=== PATIENT | male | born 2000 | race Caucasian/White ===

== ENCOUNTER 2019-02-13 09:53 | Outpatient (CLI) | payer OTHER ==
--- NOTE | 2019-02-13 10:50 | RAD ---
Exam: Chest 2 views: HISTORY: Idiopathic acute pericarditis, cardiac murmur COMPARISON: None There is large anterior mediastinal mass at approximately the level of the hilar regions. On the righ t side this mass measures approximately 12 cm in craniocaudal length. There is nodular fullness of the left perihilar region as well. Heart size is within normal limits. Small right pleural effusion. IMPRESSION: Very large anterior mediastinal mass. Follow-up postcontrast chest CT scan is recommended for further assessment. Small right pleural effusion. Findings discussed with Dr. Larry's nurse and Dr. Larry in this regard CODE CR
== END 2019-02-13 09:54 | disposition home or self-care (01) ==
LOC: BICRAD 09:53
PROVIDERS: ATTEND Internal Medicine Cardiovascular Disease
DX: I30.0 Acute nonspecific idiopathic pericarditis (principal); R01.1 Cardiac murmur, unspecified; J98.59 Other diseases of mediastinum, not elsewhere classified
CPT/HCPCS: 71046

== ENCOUNTER 2019-02-14 11:49 | Outpatient (CLI) | payer OTHER ==
--- NOTE | 2019-02-14 12:35 | CT ---
CHEST CT WITH CONTRAST: HISTORY: Abnormal chest radiograph showing mass. FINDINGS: There is an enlarged, centrally necrotic mass occupying the anterior mediastinum, measuring 13.4 x 8. 7 cm. There is an adjacent smaller hypodense lesion with similar attenuation measuring 1.9 x 1.4 cm. There is mass effect and splaying of the tracheal bifurcation as well as the right mainstem bronc hus. There appears to be obstructive atelectasis involving the right upper lobe and middle lobe. Visualized aorta has a normal caliber. No periaortic fat stranding. No obvious central pulmonary ricardo ry embolism. Normal heart size. Moderate amount of pericardial fluid of the inferior pericardial region. Visualized upper abdomen is unremarkable. Small right-sided pleural effusion. IMPRESSION: 1. Anterior mediastinal mass. Differential considerations include thymoma, teratoma and lymphoma. 2. Moderate pericardial fluid along the inferior pericardial region. Results of study discussed with Dr. Laron Lagunas's nurse 02/14/2019 at 12:34 PM Code CR Transcribed Date/Time: 02/14/2019 1:17 PM
[2019-02-14] MEDS ORDERED: Iopamidol 370 76% 100 ML VIAL ONE (16:25)
== END 2019-02-14 11:50 | disposition home or self-care (01) ==
LOC: CT 11:49
PROVIDERS: ATTEND Internal Medicine Cardiovascular Disease
DX: I30.0 Acute nonspecific idiopathic pericarditis (principal); J98.59 Other diseases of mediastinum, not elsewhere classified
CPT/HCPCS: 71260; Q9967

== ENCOUNTER 2019-02-17 08:33 | Day surgery (SDC) | payer OTHER ==
[2019-02-14 15:10] VITALS: BMI 20.9
[2019-02-17 09:18] LABS: #Eosinphils 0.3 thou/uL (0.0-0.7); #Lymphocytes 1.2 thou/uL (1.20-3.40); #Monocytes 0.8 thou/uL (0.11-0.59); #Neutrophils 3.7 thou/uL (1.40-6.50); %Basophils 0.7 % (0.0-1.0); %Eosinophils 5.3 % (0.0-10.0); %Lymphocytes 20.1 % (28.0-48.0); %Monocytes 12.5 % (0.0-4.0); %Neutrophils 61.3 % (31.0-61.0); Hemoglobin 16.5 g/dL (14.0-18.0); Mean Corpuscular HGB CONC 34.7 g/dL (32.0-36.0); Mean Corpuscular Hemoglobin 30.1 pg (25.0-35.0); Mean Corpuscular Volume 86.8 fL (78.0-98.0); Mean Platelet Volume 8.3 fL (7.4-10.4); Platelet Count 150 thou/uL (130-400); RBC Distribution Width 11.6 % (11.5-14.5); Red Blood Cell (RBC) Count 5.48 mill/uL (4.00-5.20)
[2019-02-17 09:21] LABS: PTT 29.4 SEC (22.9-36.1); Prothrombin Time 13.4 SEC (12.0-14.7)
[2019-02-17 11:27] VITALS: BP 121/71; TEMP 99
--- NOTE | 2019-02-17 13:26 | CT ---
EXAM: CT guided biopsy of anterior mediastinal mass PROVIDED CLINICAL HISTORY: Large anterior mediastinal mass. COMPARISON: CT thorax on 02/14/2019. TECHNIQUE: The procedure including the risks and complications were explained to the patient, and informed conse nt was obtained. The patient was placed on the CT scan table in the supine position. Limited noncontrasted CT scan was obtained through the level of the large anterior mediastinal mass with grid localizer in place. An area was marked and then meticulously prepped and draped in usual sterile fashion. The skin and mir bcutaneous tissues were infiltrated with buffered 1% lidocaine for local anesthesia. A small skin incision was made. A 17-gauge guide needle was advanced followed by [address] images. This was repeated until the needle was placed into the peripheral aspect of the anterior mediastinal mass. A total of two 18-gauge core needle biopsy specimens were obtained utilizing coaxia l technique. Pathologist was available for evaluation of the specimens, and the pathologist reported diagnostic tissue biopsy. The needle was removed, and hemostasis was achieved with direct pressure. Dry sterile dressing was pl aced. The patient tolerated the procedure well and without immediate complication. The patient was transpor valentín to radiology nurses holding area for further monitoring prior to discharge. FINDINGS: Family Helper images again demonstrates a very large anterior mediastinal mass which extends into the right c hest with central area of necrosis again present. There is a small right pleural effusion again identified. A pericardial effusion is also seen which is larger in size compared to the study on 02/14. A CT-guided percutaneous biopsy was successfully performed with diagnostic tissue obtained by patholo gy report. Final pathology is pending. IMPRESSION: 1. Large anterior mediastinal mass. 2. Small right pleural effusion. 3. Small pericardial effusion which has increased in size from prior study. 4. Technically successful CT-guided percutaneous biopsy of the large anterior mediastinal mass. Final pathology report is pending.
== END 2019-02-17 13:00 | disposition home or self-care (01) ==
LOC: CT 08:33
PROVIDERS: ATTEND Internal Medicine Hematology & Oncology
PROC: 0WBC3ZX Excision of Mediastinum, Percutaneous Approach, Diagnostic (ICD-10-PCS; principal; 2019-02-17)
DX: C85.29 Mediastinal (thymic) large B-cell lymphoma, extranodal and solid organ sites (principal); J90 Pleural effusion, not elsewhere classified; I31.3 Pericardial effusion (noninflammatory); Z79.899 Other long term (current) drug therapy
CPT/HCPCS: 32405; 36415; 77012; 85025; 85610; 85730; 88184; 88305; 88333; 88341; 88342

== ENCOUNTER 2019-02-25 13:49 | Outpatient (CLI) | payer OTHER ==
--- NOTE | 2019-02-25 13:59 | PET ---
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 Initial staging. C 83.32 COMPARISON: none TECHNIQUE: IV injection of F-18 fluorodeoxyglucose (FDG) dose: 11.3 mCi. PET scan and attenuation correction CT performed from skull base to proximal thighs. FINDINGS: SUV (standard uptake values) numbers given are maximum SUVs. QCLR used. The huge anterior mediastinal mass centered to the right of midline has increased uptake, SUV 20.9. Small right pleural effusion. At the right posteromedial pleural space, just lateral and to the right of the T12 prevertebral space , there is a small focus of very increased uptake with SUV of 14.9. There is a small pericardial effusion. No abnormal hypermetabolic activity in the neck, abdomen, or pelvis. IMPRESSION: 1) very hypermetabolic activity of the huge anterior mediastinal lymphoma tumor mass. 2) very small neoplastic focal lesion in right pleural space associated with small right pleural effu nayana. 3) small pericardial effusion.
== END 2019-02-25 13:50 | disposition home or self-care (01) ==
LOC: PET 13:49
PROVIDERS: ATTEND Internal Medicine Hematology & Oncology
DX: C83.32 Diffuse large B-cell lymphoma, intrathoracic lymph nodes (principal); J90 Pleural effusion, not elsewhere classified
CPT/HCPCS: 78815; A9552

== ENCOUNTER 2019-02-28 06:47 | Outpatient (CLI) | payer OTHER ==
[2019-02-28 10:12] LABS: #Eosinphils 0.3 thou/uL (0.0-0.7); #Monocytes 0.7 thou/uL (0.11-0.59); #Neutrophils 3.3 thou/uL (1.40-6.50); %Basophils 0.6 % (0.0-1.0); %Eosinophils 4.9 % (0.0-10.0); %Lymphocytes 19.5 % (21.0-51.0); %Neutrophils 61.9 % (42.0-75.0); Mean Corpuscular HGB CONC 33.6 g/dL (32.0-36.0); Mean Corpuscular Hemoglobin 29.5 pg (27.0-31.0); Mean Corpuscular Volume 87.7 fL (78.0-98.0); Mean Platelet Volume 8.1 fL (7.4-10.4); Platelet Count 149 thou/uL (130-400); RBC Distribution Width 11.6 % (11.5-14.5); Red Blood Cell (RBC) Count 5.43 mill/uL (4.70-6.10); White Blood Cell (WBC) Count 5.3 thou/uL (4.8-10.8)
[2019-02-28 10:33] LABS: Anion Gap 12 mmol/L (10-20); BUN (Urea Nitrogen) 16 mg/dL (8.9-20.6); Calc. Creatinine Clearance 0 mL/min (70-130); Calcium 9.8 mg/dL (7.8-10.44); Carbon Dioxide 27 mmol/L (22-29); Chloride 103 mmol/L (98-107); Estimated GFR-MDRD 86; Glucose 78 mg/dL (70-105); Potassium 4.4 mmol/L (3.5-5.1); Sodium 138 mmol/L (136-145)
== END 2019-02-28 06:48 | disposition home or self-care (01) ==
LOC: LABBT 06:47
PROVIDERS: ATTEND Surgery
DX: Z01.812 Encounter for preprocedural laboratory examination (principal); C85.90 Non-Hodgkin lymphoma, unspecified, unspecified site
CPT/HCPCS: 80048; 85025

== ENCOUNTER 2019-03-03 06:08 | Day surgery (SDC) | payer OTHER ==
[2019-02-28 09:47] VITALS: BMI 20.9
[2019-03-03] MEDS ORDERED: Lidocaine 2% PF 5 ML VIAL ONE (06:54)
[2019-03-03] MEDS ORDERED: Bupivacaine 0.25% HCL 30 ML VIAL ONE (06:54)
[2019-03-03] MEDS ORDERED: Midazolam HCl 2 mg/2 ml Vial ONE (07:03)
[2019-03-03] MEDS ORDERED: Fentanyl 100 MCG/2 ML VIAL ONE (07:03)
[2019-03-03] MEDS ORDERED: Ketamine 50 MG/ML (10ML VIAL) ONE (07:23)
[2019-03-03] MEDS ORDERED: Albuterol Sulfate HFA (OR ONLY) ONE (08:05)
--- NOTE | 2019-03-03 08:54 | OP ---
DATE OF PROCEDURE: 03/03/2019 PREOPERATIVE DIAGNOSIS: Lymphoma. POSTOPERATIVE DIAGNOSIS: Lymphoma with distal trachea obstruction during anesthesia. PROCEDURE PERFORMED: Attempted MediPort. SPECIMENS: None. ESTIMATED BLOOD LOSS: None. COMPLICATIONS: The procedure had to be aborted secondary to airway compromise when he lays supine. FINDINGS: The patient developed distal trachea and bronchus obstruction from this mass when he laid spine and he was sedated, so the procedure was aborted. DESCRIPTION OF PROCEDURE: The patient was taken to the operating room and laid supine on the operating room table. After sedation was obtained, the bilateral neck and chest was prepped and draped in a sterile fashion. Local anesthetic infiltrated over the right internal jugular vein and in the right upper chest. The right internal jugular vein was attempted to be cannulated using a 22-gauge finder needle. The patient developed severe coughing episode followed by airway obstruction. He was intubated. Even after intubation, he had low saturations and was difficult to ventilate. He was placed on his right side, and his ventilation became easier. Decision was made to stop the procedure. He will discuss with Dr. Rizo, his oncologist. He will have PICC line placed for his treatment. We will attempt to have that arranged today. Chest x-ray will be obtained postop. Job ID: [id number]
--- NOTE | 2019-03-03 09:01 | RAD ---
XR Chest 1 View HISTORY: Postop COMPARISON: 02/13/2019 chest x-ray and CT examination of 02/14/2018. FINDINGS: The heart size is within normal limits. There is now increased opacification of the right c hest, this appears to be relates and development of right-sided pleural effusion the right hilar and mediastinal mass is more obscured on this study than on the previous exam. I'm not certain what c omponent of this opacification is related to an elevated right hemidiaphragm. The left lung is clear. IMPRESSION: Increased opacification the right hemithorax, probably related to pleural effusion but so me component of this is probably related to the mass and possibly also related to elevation to the hemidiaphragm.
[2019-03-03] MEDS ORDERED: PROPOFOL 200 MG/20 ML VIAL ONE (10:08)
[2019-03-03] MEDS ORDERED: Succinylcholine Chloride 20 MG/ML 10 ml SYRINGE FS ONE (10:08)
--- NOTE | 2019-03-03 16:07 | SPC ---
Sonographic guided left upper extremity PICC placement HISTORY: Lymphoma. FINDINGS: After explaining the procedure and answering all questions, the left upper extremity was pr epped and draped in usual sterile fashion. Sterile technique, buffered local anesthesia, sonographic guidance, and a 22-gauge needle were used to carefully access the left basilic vein. Sumit dard technique was used to place the tip of a 5 Cam[place]onian single lumen PICC so that the tip lies at the level of the superior vena cava. Catheter was flushed and secured externally. Patient tolerated t he procedure well and was returned in unchanged condition. Fluoroscopy time 0 seconds. IMPRESSION: Left upper extremity PICC is ready for use.
== END 2019-03-03 12:25 | disposition home or self-care (01) ==
LOC: SDC 06:08
PROVIDERS: ATTEND Surgery
PROC: 02HV33Z Insertion of Infusion Device into Superior Vena Cava, Percutaneous Approach (ICD-10-PCS; principal; 2019-03-03)
DX: C85.90 Non-Hodgkin lymphoma, unspecified, unspecified site (principal); J98.8 Other specified respiratory disorders; Z79.899 Other long term (current) drug therapy; Z53.8 Procedure and treatment not carried out for other reasons
CPT/HCPCS: 36569; 71045; C1751; C1788; J0690; J1642; J2001; J2250; J2704; J3010; S0020

== ENCOUNTER 2019-03-10 07:38 | Inpatient (IN) | payer OTHER ==
[2019-03-10] MEDS ORDERED: Acetaminophen 325 MG TAB PO PRN ×2 (14:48→16:50)
[2019-03-10] MEDS ORDERED: SODIUM CHLORIDE 0.9% IVPB SCH (15:00)
[2019-03-10] MEDS ORDERED: Ondansetron 2MG/ML MDV 10 MG, Dexamethasone Sod Phosphate 20 MG in Sodium Chloride 0.9%... IVPB SCH (15:00)
[2019-03-10] MEDS ORDERED: RITUXIMAB IVPB SCH (15:00)
[2019-03-10] MEDS ORDERED: Famotidine/PF 20 mg/2ml Vial SLOW IVP SCH (15:00)
[2019-03-10] MEDS ORDERED: PEGFILGRASTIM-JMDB 6 MG/0.6 ML SYRINGE SQ SCH (15:15)
[2019-03-10] MEDS ORDERED: Sulfameth/Trimethoprim DS 800-160mg TAB PO SCH (15:15)
--- NOTE | 2019-03-10 15:30 | RAD ---
PORTABLE CHEST 1 VIEW: Date: 03/10/19 Time: 1510 hours HISTORY: Right pleural effusion follow-up. Diffuse large B cell lymphoma. FINDINGS/IMPRESSION: Comparison made with exam of 03/03/19. The heart size is normal. The left lung is clear. A left-sided PICC line has been placed in the inter im with tip in the projection of the SVC. No pneumothoraces are seen. The right hilar/perihilar mass is again noted. A small right pleural effusion is present. POS: [facility]
[2019-03-10 15:32] LABS: Mean Corpuscular HGB CONC 35.4 g/dL (32.0-36.0); Mean Corpuscular Hemoglobin 30.4 pg (27.0-31.0); Mean Corpuscular Volume 85.9 fL (78.0-98.0); Mean Platelet Volume 8.3 fL (7.4-10.4); Platelet Count 151 thou/uL (130-400); RBC Distribution Width 11.8 % (11.5-14.5); Red Blood Cell (RBC) Count 5.25 mill/uL (4.70-6.10); White Blood Cell (WBC) Count 7.3 thou/uL (4.8-10.8)
[2019-03-10 15:38] LABS: INR-International Normal Ratio 1.1; PTT 30.3 SEC (22.9-36.1); Prothrombin Time 14.5 SEC (12.0-14.7)
[2019-03-10 15:54] LABS: ALT (SGPT) 21 U/L (8-55); AST (SGOT) 33 U/L (5-34); Albumin 4.4 g/dL (3.5-5.0); Alkaline Phosphatase 74 U/L (40-110); Anion Gap 14 mmol/L (10-20); BUN (Urea Nitrogen) 21 mg/dL (8.9-20.6); Band 17 % (5-11); Calc. Creatinine Clearance 0 mL/min (70-130); Calcium 10.4 mg/dL (7.8-10.44); Carbon Dioxide 28 mmol/L (22-29); Chloride 101 mmol/L (98-107); Eosinophils 5 % (0-10); Estimated GFR-MDRD 68; Globulin 2.5 g/dL (2.4-3.5); Glucose 79 mg/dL (70-105); Lymphocytes 7 % (21-51); MDiff Complete? YES; Monocytes 11 % (0-10); Neutrophil 54 % (42-75); Platelet Morphology Comment Appears Adequate; Potassium 4.2 mmol/L (3.5-5.1); Protein, Total 6.9 g/dL (6.0-8.3); RBC Morphology Normal; Reactive Lymphocytes 5 % (0-10); Sodium 139 mmol/L (136-145)
[2019-03-10] MEDS ORDERED: diphenhydrAMINE 50 MG in Sodium Chloride 0.9% 50 ML IVPB SCH (16:30)
[2019-03-10] MEDS ORDERED: Guaifenesin DM 100-10/5 ML UDCUP PO PRN (16:50)
[2019-03-10] MEDS ORDERED: Bisacodyl 10 MG SUPP PR PRN (16:50)
[2019-03-10] MEDS ORDERED: Senokot S 8.6-50 MG TAB PO PRN (16:50)
[2019-03-10] MEDS ORDERED: HYDROcodone/Acetaminophen 5/325 mg Tablet PO PRN (16:50)
[2019-03-10] MEDS ORDERED: Albuterol Sulfate 1.25 MG/3 ML NEB NEB PRN (16:54)
[2019-03-10] MEDS: Sodium Chloride 0.9% 1,000 ML IV SCH (17:58)
[2019-03-10] MEDS ORDERED: Morphine 4 MG/ML VIAL SLOW IVP SCH (19:45)
[2019-03-10] MEDS: Ondansetron PF 4 MG/2 ML Vial IVP PRN (20:00)
--- NOTE | 2019-03-10 20:28 | HP ---
REASON FOR ADMISSION: B-cell lymphoma for chemotherapy. HISTORY OF PRESENTING ILLNESS: The patient gives history of being diagnosed with B-cell lymphoma a month back. He was sent over from Dr. Haresh Rizo's office to initiate chemotherapy. He has complaints of shortness of breath which is progressively getting worse for the last month now. No chest pain or palpitation. No history of fever. PAST MEDICAL AND SURGICAL HISTORY: History of B-cell lymphoma which was diagnosed a month back. No prior surgeries. CURRENT MEDICATION: Allopurinol 300 mg twice daily. ALLERGIES: NO KNOWN DRUG ALLERGIES. PERSONAL HISTORY: Does not abuse alcohol or drugs. No history of smoking. The patient is single. FAMILY HISTORY: Both parents are alive and healthy. Has two siblings, a brother and sister both are healthy with no history of lymphomas or cancer. CODE STATUS: Full. REVIEW OF SYSTEMS: CONSTITUTIONAL: Negative for weight loss or gain, ability to conduct usual activities. SKIN: Negative for rash, itching. EYES: Negative for double vision, pain. ENT/MOUTH: Negative for nose bleeding, neck stiffness, pain, tenderness. CARDIOVASCULAR: Negative for palpitations, dyspnea on exertion, orthopnea. RESPIRATORY: Negative for shortness of breath, wheezing, cough, hemoptysis, fever or night sweats. GASTROINTESTINAL: Negative for poor appetite, abdominal pain, heartburn, nausea , vomiting, constipation, or diarrhea. GENITOURINARY: Negative for urgency, frequency, dysuria, nocturia. MUSCULOSKELETAL: Negative for pain, swelling. NEUROLOGIC/PSYCHIATRIC: Negative for anxiety, depression. ALLERGY/IMMUNOLOGIC: Negative for skin rash, bleeding tendency. PHYSICAL EXAMINATION: GENERAL: The patient is a 19-year-old male who is currently not in any acute distress. VITAL SIGNS: Blood pressure 134/80, pulse 116 per minute, respiratory rate 18 per minute, temperature 97.8 degrees Fahrenheit, saturating 95% on room air. NECK: Supple. No elevated JVD. HEENT: Eyes; extraocular muscles intact. Pupils reacting to light. Oral cavity, mucous membranes are moist. No exudates or congestion. CARDIOVASCULAR: S1, S2 heard. Regular rhythm. RESPIRATORY: Air entry 1+ bilateral. No rales or rhonchi. ABDOMEN: Soft. Bowel sounds heard. No tenderness, rigidity, or guarding. EXTREMITIES: No peripheral edema or calf tenderness. VASCULAR: Peripheral pulses, 2+ bilateral. No ischemic ulcerations or gangrene. CENTRAL NERVOUS SYSTEM: No gross focal deficits noted. The patient is alert, awake, and oriented well. PSYCHIATRIC: The patient's mood is euthymic. No hallucinations or delusions. LABORATORY DATA: White count of 7.3, H and H 16 and 45, platelet count 151 with 54% neutrophils, 17% bands, 7% lymphocytes, 5% reactive lymphocytes and 11% monocytes. PT, INR, PTT within normal limits. BUN 21, creatinine 1.3, serum bicarb 28, uric acid 3.5, calcium 10.4. AST, ALT, alkaline phosphatase within normal limits. LDH is elevated at 590. BNP 12.4, albumin 4.4. Chest x-ray done shows large anterior mediastinal mass with right pleural effusion. CLINICAL IMPRESSION AND PLAN: The patient will be admitted to oncology floor to initiate chemotherapy for his high-grade B-cell lymphoma. The plan is to start him on cyclophosphamide, Adriamycin, etoposide, Emend, prednisone, rituximab, and vincristine. He will be gently hydrated with normal saline at 100 mL/hour. We will continue his allopurinol. Daily uric acid levels and metabolic panel will be obtained to watch for tumor lysis syndrome. Echo with 2D Doppler in view of history of pericardial effusion and with the patient going on doxorubicin to obtain a baseline LV function. He will be on regular diet for now. We will closely monitor him in oncology floor. Oncology consultation with Dr. Haresh Rizo will be obtained. Job ID: [id number] MTDD
[2019-03-10] MEDS: Allopurinol 300 MG TAB PO SCH (21:19)
[2019-03-11] MEDS ORDERED: SODIUM CHLORIDE 0.9% IVPB SCH (00:45)
[2019-03-11] MEDS ORDERED: FOSAPREPITANT DIMEGLUMINE IVPB SCH (00:45)
[2019-03-11] MEDS: Sodium Chloride 0.9% 1,000 ML IV SCH ×2 (01:17→09:47)
[2019-03-11 07:16] LABS: Anion Gap 11 mmol/L (10-20); BUN (Urea Nitrogen) 18 mg/dL (8.9-20.6); Calc. Creatinine Clearance 79 mL/min (70-130); Carbon Dioxide 26 mmol/L (22-29); Chloride 103 mmol/L (98-107); Estimated GFR-MDRD 66; Glucose 72 mg/dL (70-105); Potassium 4.1 mmol/L (3.5-5.1); Sodium 136 mmol/L (136-145)
[2019-03-11 08:04] LABS: #Basophils 0.1 thou/uL (0.0-0.2); #Eosinphils 0.2 thou/uL (0.0-0.7); #Lymphocytes 0.3 thou/uL (1.20-3.40); #Monocytes 0.7 thou/uL (0.11-0.59); #Neutrophils 3.5 thou/uL (1.40-6.50); %Basophils 1.5 % (0.0-1.0); %Lymphocytes 6.3 % (21.0-51.0); %Monocytes 14.2 % (0.0-10.0); %Neutrophils 72.9 % (42.0-75.0); Hemoglobin 14.4 g/dL (14.0-18.0); MDiff Complete? YES; Mean Corpuscular HGB CONC 35.2 g/dL (32.0-36.0); Mean Corpuscular Hemoglobin 30.5 pg (27.0-31.0); Mean Corpuscular Volume 86.7 fL (78.0-98.0); Mean Platelet Volume 7.8 fL (7.4-10.4); Platelet Count 118 thou/uL (130-400); Platelet Morphology Comment Appears Decreased; Polychromasia SLIGHT = 2-3 cells (100X) (0-2/hpf); RBC Distribution Width 11.7 % (11.5-14.5); Red Blood Cell (RBC) Count 4.72 mill/uL (4.70-6.10); White Blood Cell (WBC) Count 4.7 thou/uL (4.8-10.8)
[2019-03-11] MEDS: Enoxaparin Sodium 40 MG/0.4 ML SYRINGE SC SCH (09:46)
[2019-03-11] MEDS: Famotidine 20 MG TAB PO SCH ×2 (09:46→20:55)
[2019-03-11] MEDS: Allopurinol 300 MG TAB PO SCH ×2 (09:46→20:55)
[2019-03-11] MEDS ORDERED: Ondansetron 2MG/ML MDV 10 MG, Dexamethasone Sod Phosphate 20 MG in Sodium Chloride 0.9%... IVPB SCH (10:00)
[2019-03-11] MEDS: SODIUM CHLORIDE 0.9% IVPB SCH ×2 (12:18→14:49)
[2019-03-11] MEDS: ETOPOSIDE IVPB SCH (12:18)
[2019-03-11] MEDS: predniSONE 50 MG TAB PO SCH (12:19)
[2019-03-11] MEDS: DOXORUBICIN IVPB SCH (14:49)
[2019-03-11 15:57] VITALS: BMI 20.1
--- NOTE | 2019-03-11 19:28 | PDOC.HOSPP ---
- Subjective Encounter Date: 03/11/19 Encounter Time: 19:15 Subjective: f/u for high-grade B-cell lymphoma of the mediastinum initiated on chemotx. Reaction to Rituxan last pm but no fever documented. Overall feels ok. - Objective Vital Signs & Weight: Vital Signs (12 hours) Temp Pulse Resp BP Pulse Ox 03/11/19 15:12 97.4 F L 108 H 16 122/72 95 03/11/19 11:48 97.8 F 109 H 16 119/68 95 03/11/19 08:02 97.7 F 112 H 16 142/82 H 96 Weight Admit Weight 144 lb 4.8 oz Weight 144 lb 4.8 oz I&O: 03/10/19 03/11/19 03/12/19 06:59 06:59 06:59 Intake Total 500 2255 Balance 500 2255 Result Diagrams: 03/11/19 06:50 03/11/19 06:50 Additional Labs: Laboratory Tests 03/10/19 03/10/19 03/10/19 15:20 15:20 15:20 WBC 7.3 Band Neuts % (Manual) 17 H Creatinine 1.33 H Uric Acid Lactate Dehydrogenase B-Natriuretic Peptide 12.4 03/10/19 03/10/19 15:20 16:53 WBC Band Neuts % (Manual) Creatinine Uric Acid 3.5 Lactate Dehydrogenase 590 H B-Natriuretic Peptide Radiology Reviewed by me: Yes (Echo - EF 50-55%) Hospitalist ROS - Medication Medications: Active Medications Generic Name Dose Route Start Last Admin Trade Name Freq PRN Reason Stop Dose Admin Allopurinol 300 mg 03/10/19 21:00 03/11/19 09:46 Zyloprim PO 300 mg BID VIKTORIA Administration Enoxaparin Sodium 40 mg 03/11/19 09:00 03/11/19 09:46 Lovenox SC 40 mg 0900 VIKTORIA Administration Famotidine 20 mg 03/11/19 09:00 03/11/19 09:46 Pepcid PO 20 mg BID VIKTORIA Administration Doxorubicin HCl 18 mg/ Sodium 59 mls @ 0 mls/hr 03/10/19 15:15 03/11/19 14:49 Chloride IVPB 03/13/19 23:00 59 mls WILLCALL VIKTORIA Administration As Directed Vincristine Sulfate 0.7 mg/ 50.7 mls @ 0 mls/hr 03/10/19 15:15 03/11/19 14:06 Sodium Chloride IVPB 03/13/19 23:00 50.7 mls WILLCALL VIKTORIA Administration As Directed Etoposide 92 mg/ Sodium 504.6 mls @ 504.6 mls/hr 03/10/19 15:15 03/11/19 12: 18 Chloride IVPB 03/13/19 23:00 504.6 mls WILLCALL VIKTORIA Administration Sodium Chloride 1,000 mls @ 100 mls/hr 03/10/19 17:00 03/11/19 09:47 Normal Saline 0.9% IV 1,000 mls .Q10H VIKTORIA Administration Fosaprepitant 125 mg/ Sodium 145 mls @ 290 mls/hr 03/11/19 00:45 03/11/19 11: 21 Chloride IVPB 145 mls WILLCALL VIKTORIA Administration Ondansetron HCl 10 mg/ 57 mls @ 114 mls/hr 03/11/19 10:00 03/11/19 10:20 Dexamethasone Sodium Phosphate IVPB 57 mls 20 mg/ Sodium Chloride WILLCALL VIKTORIA Administration Ondansetron HCl 4 mg 03/10/19 16:50 03/10/19 20:00 Zofran IVP 4 mg Q6H PRN Administration Nausea/Vomiting Prednisone 100 mg 03/11/19 13:00 03/11/19 12:19 Prednisone PO 03/13/19 23:00 100 mg WILLCALL VIKTORIA Administration - Exam General Appearance: NAD, awake alert Eye: PERRL, anicteric sclera ENT: normocephalic atraumatic, no oropharyngeal lesions Neck: supple, symmetric, no JVD, no thyromegaly Heart: RRR, no gallops, no rubs, normal peripheral pulses Respiratory: no wheezes, no ronchi Respiratory - other findings: diminished on R-side Gastrointestinal: soft, non-tender, non-distended, normal bowel sounds, no palpable masses Extremities: no cyanosis, no clubbing, no edema Skin: normal turgor, no lesions Neurological: cranial nerve grossly intact, no new deficit Musculoskeletal: normal tone, normal strength, no muscle wasting Psychiatric: normal affect, A&O x 3 Hosp A/P (1) Large B-cell lymphoma Code(s): C85.10 - UNSPECIFIED B-CELL LYMPHOMA, UNSPECIFIED SITE Status: Acute Plan: Mediastinal lymphoma, initiating chemotx, continue protocol (2) JUAN (acute kidney injury) Code(s): N17.9 - ACUTE KIDNEY FAILURE, UNSPECIFIED Status: Acute Plan: Continue IVF's, avoid nephrotoxic meds and limit contrast exposure (3) Sinus tachycardia Code(s): R00.0 - TACHYCARDIA, UNSPECIFIED Status: Acute Plan: Multifactorial, continue supportive mgmt, monitor for fever, continue IVF - Plan social worker, out of bed/ambulate, DVT proph w/SCDs Stable currently Continue chemotx per protocol Continue IVF NS OOB/ambulate Ensure Enlive BID
[2019-03-12] MEDS: Sodium Chloride 0.9% 1,000 ML IV SCH ×4 (00:22→20:23)
--- NOTE | 2019-03-12 11:41 | CON ---
DATE OF CONSULTATION: 03/11/2019 (dictated 03/12/19) REASON FOR CONSULTATION: Lymphoma. HISTORY OF PRESENT ILLNESS: A 19-year-old male with primary mediastinal B-cell lymphoma, being admitted for treatment with dose-adjusted EPOCH-R. The patient initially presented with chest pain to Dr. Larry and during evaluation had a CT chest that showed a 13.4-cm anterior mediastinal mass and biopsy on February 17 showed primary mediastinal B-cell lymphoma. He had a PET scan that showed no other sites of disease. In addition to chest pain, he has mild shortness of breath with some difficulty lying flat, so sleeps propped up. He otherwise has no complaints. He has received rituximab and during infusion had severe rigors and tachycardia and received morphine and the infusion was stopped. His symptoms resolved and was resumed on a very slow rate. None of his symptoms have recurred and he is finishing his rituximab now. He currently has no shortness of breath, nausea, vomiting, or other symptoms. REVIEW OF SYSTEMS: Ten-point review of systems negative except as per HPI. PAST MEDICAL HISTORY: Lymphoma. FAMILY HISTORY: Breast cancer in his grandmother. Prostate cancer in his grandfather. SOCIAL HISTORY: No smoker. No alcohol. 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 PAST SURGICAL HISTORY: [place] teeth extraction. ALLERGIES: NO KNOWN DRUG ALLERGIES. CURRENT MEDICATIONS: Reviewed. PHYSICAL EXAMINATION: VITAL SIGNS: The patient is afebrile and vital signs are otherwise stable. Gen: NAD HEENT: NC/AT Resp: CTAB, no W/R/R CVS: S1S2, RRR Abd: S/ND/NT Lymph: no palpable LAD Neuro: CN II-XII grossly intact Psych: AAOx3 LABORATORY DATA: Last lab work in clinic on February 10 showed white blood cells 5.6, hemoglobin 15.8, and platelets 152. BUN 13, creatinine 1.06. Uric acid of 7.7. LDH of 559. IMAGING DATA: CT chest on February 14 showed 13.4 x 8.7 cm anterior mediastinal mass. ASSESSMENT AND PLAN: A 19-year-old male with primary mediastinal B- cell lymphoma, being admitted for dose-adjusted EPOCH-R. The patient is finishing with his rituximab, had an infusion reaction and his symptoms have now resolved. He will begin his chemotherapy portion later today. We will continue to follow him with daily tumor lysis, labs including uric acid, LDH, potassium and phosphorus and BUN and creatinine. He will receive Neulasta after chemotherapy and will be able to be discharged home afterward. Job ID: [id number] MTDD
[2019-03-12] MEDS: Allopurinol 300 MG TAB PO SCH ×2 (13:37→20:16)
[2019-03-12] MEDS: Enoxaparin Sodium 40 MG/0.4 ML SYRINGE SC SCH (13:37)
[2019-03-12] MEDS: Sulfameth/Trimethoprim DS 800-160mg TAB PO SCH (13:38)
[2019-03-12] MEDS: Famotidine 20 MG TAB PO SCH ×2 (13:38→20:16)
--- NOTE | 2019-03-12 13:48 | PDOC.MOPN ---
Interval History: Pt feeling well, working on his computer. Denies fevers, N/V/D/C. No more reactions to chemotherapy. - Vital Signs Vital Signs: Vital Signs (12 hours) Temp Pulse Resp BP BP Pulse Ox 03/12/19 11:30 97.9 F 103 H 16 127/79 96 03/12/19 08:00 98.1 F 96 16 123/64 95 03/12/19 07:35 98.1 F 96 16 123/64 95 Weight Admit Weight 144 lb 4.8 oz Weight 144 lb 4.8 oz - Physical Exam General: Alert, Oriented x3, Cooperative HEENT: EOMI Lungs: Normal air movement Cardiovascular: Regular rate Neurological: Cranial nerves 3-12 NL Psych/Mental Status: Mental status NL, Mood NL - Labs Result Diagrams: 03/11/19 06:50 03/11/19 06:50 A/P - Problem (1) JUAN (acute kidney injury) Current Visit: Yes Code(s): N17.9 - ACUTE KIDNEY FAILURE, UNSPECIFIED Status : Acute (2) Large B-cell lymphoma Current Visit: Yes Code(s): C85.10 - UNSPECIFIED B-CELL LYMPHOMA, UNSPECIFIED SITE Status: Acute - Plan Plan: Cont da-EPOCH-R monitor TLS labs: uric acid, LDH, Potassium, Phos, BUN/Cr cont IVF cont allopurinol
[2019-03-12] MEDS: predniSONE 50 MG TAB PO SCH (14:15)
[2019-03-12] MEDS: predniSONE 5 MG TAB PO SCH (14:16)
[2019-03-12] MEDS: Ondansetron 2MG/ML MDV 10 MG in Sodium Chloride 0.9% 50 ML IVP SCH ×2 (14:27→14:29)
[2019-03-12] MEDS: ETOPOSIDE IVPB SCH (15:21)
[2019-03-12] MEDS: SODIUM CHLORIDE 0.9% IVPB SCH ×2 (15:21→16:52)
[2019-03-12] MEDS: DOXORUBICIN IVPB SCH (16:52)
--- NOTE | 2019-03-12 19:55 | PDOC.HOSPP ---
- Subjective Encounter Date: 03/12/19 Encounter Time: 19:50 Subjective: f/u for Large B-cell lymphoma initiated on chemotherapy. No new complaints. No fever or nausea. - Objective Vital Signs & Weight: Vital Signs (12 hours) Temp Pulse Resp BP BP Pulse Ox 03/12/19 15:46 97.7 F 89 16 126/70 97 03/12/19 11:30 97.9 F 103 H 16 127/79 96 03/12/19 08:00 98.1 F 96 16 123/64 95 Weight Admit Weight 144 lb 4.8 oz Weight 144 lb 4.8 oz I&O: 03/11/19 03/12/19 03/13/19 06:59 06:59 06:59 Intake Total 500 2615 Balance 500 2615 Result Diagrams: 03/11/19 06:50 03/11/19 06:50 Additional Labs: Laboratory Tests 03/10/19 03/10/19 03/10/19 15:20 15:20 15:20 WBC 7.3 Band Neuts % (Manual) 17 H Creatinine 1.33 H Uric Acid Lactate Dehydrogenase B-Natriuretic Peptide 12.4 03/10/19 03/10/19 15:20 16:53 WBC Band Neuts % (Manual) Creatinine Uric Acid 3.5 Lactate Dehydrogenase 590 H B-Natriuretic Peptide Hospitalist ROS - Medication Medications: Active Medications Generic Name Dose Route Start Last Admin Trade Name Freq PRN Reason Stop Dose Admin Allopurinol 300 mg 03/10/19 21:00 03/12/19 13:37 Zyloprim PO Not Given BID [facility] Enoxaparin Sodium 40 mg 03/11/19 09:00 03/12/19 13:37 Lovenox SC Not Given 0900 VIKTORIA Famotidine 20 mg 03/11/19 09:00 03/12/19 13:38 Pepcid PO Not Given BID VIKTORIA Doxorubicin HCl 18 mg/ Sodium 59 mls @ 0 mls/hr 03/10/19 15:15 03/12/19 16:52 Chloride IVPB 03/13/19 23:00 59 mls WILLCALL VIKTORIA Administration As Directed Vincristine Sulfate 0.7 mg/ 50.7 mls @ 0 mls/hr 03/10/19 15:15 03/12/19 16:40 Sodium Chloride IVPB 03/13/19 23:00 50.7 mls WILLCALL VIKTORIA Administration As Directed Etoposide 92 mg/ Sodium 504.6 mls @ 504.6 mls/hr 03/10/19 15:15 03/12/19 15: 21 Chloride IVPB 03/13/19 23:00 504.6 mls WILLCALL VIKTORIA Administration Sodium Chloride 1,000 mls @ 100 mls/hr 03/10/19 17:00 03/12/19 14:28 Normal Saline 0.9% IV 1,000 mls .Q10H VIKTORIA Administration Fosaprepitant 125 mg/ Sodium 145 mls @ 290 mls/hr 03/11/19 00:45 03/11/19 11: 21 Chloride IVPB 145 mls WILLCALL VIKTORIA Administration Ondansetron HCl 10 mg/ 57 mls @ 114 mls/hr 03/11/19 10:00 03/11/19 10:20 Dexamethasone Sodium Phosphate IVPB 57 mls 20 mg/ Sodium Chloride WILLCALL VIKTORIA Administration Ondansetron HCl 10 mg/ Sodium 55 mls @ 110 mls/hr 03/12/19 13:30 03/12/19 14: 29 Chloride IVP 55 mls WILLCALL VIKTORIA Administration Ondansetron HCl 4 mg 03/10/19 16:50 03/10/19 20:00 Zofran IVP 4 mg Q6H PRN Administration Nausea/Vomiting Prednisone 100 mg 03/11/19 13:00 03/12/19 14:15 Prednisone PO 03/13/19 23:00 100 mg WILLCALL VIKTORIA Administration Prednisone 10 mg 03/12/19 13:30 03/12/19 14:16 Prednisone PO 10 mg WILLCALL VIKTORIA Administration Trimethoprim/Sulfamethoxazole 1 tab 03/12/19 09:00 03/12/19 13:38 Bactrim Ds PO Not Given MWF VIKTORIA - Exam General Appearance: NAD, awake alert Eye: PERRL, anicteric sclera ENT: normocephalic atraumatic, no oropharyngeal lesions Neck: supple, symmetric, no JVD, no thyromegaly Heart: RRR, no murmur, no gallops, no rubs, normal peripheral pulses Respiratory: CTAB, no wheezes, no rales Respiratory - other findings: diminished in R field Gastrointestinal: soft, non-tender, non-distended, normal bowel sounds Extremities: no cyanosis, no clubbing, no edema Skin: normal turgor, no lesions Neurological: cranial nerve grossly intact, no new deficit Musculoskeletal: normal tone, normal strength, no muscle wasting Psychiatric: normal affect, A&O x 3 Hosp A/P (1) Large B-cell lymphoma Code(s): C85.10 - UNSPECIFIED B-CELL LYMPHOMA, UNSPECIFIED SITE Status: Acute Plan: Continue chemotherapy per medical oncology service (2) JUAN (acute kidney injury) Code(s): N17.9 - ACUTE KIDNEY FAILURE, UNSPECIFIED Status: Acute Plan: Continue IVF's, avoid nephrotoxic meds and limit contrast exposure (3) Sinus tachycardia Code(s): R00.0 - TACHYCARDIA, UNSPECIFIED Status: Acute Plan: Improved currently, continue IVF's - Plan social service technician, out of bed/ambulate, DVT proph w/SCDs Stable currently Continue chemotx per protocol Continue IVF NS OOB/ambulate Ensure Enlive BID
[2019-03-13] MEDS: Famotidine 20 MG TAB PO SCH ×2 (10:08→20:46)
[2019-03-13] MEDS: Enoxaparin Sodium 40 MG/0.4 ML SYRINGE SC SCH (10:09)
[2019-03-13] MEDS: Allopurinol 300 MG TAB PO SCH ×2 (10:17→20:46)
--- NOTE | 2019-03-13 12:00 | PDOC.MOPN ---
Interval History: occasional nausea. no emesis. BM this am. - Vital Signs Vital Signs: Vital Signs (12 hours) Temp Pulse Resp BP Pulse Ox 03/13/19 08:10 98.3 F 84 16 118/61 93 L 03/13/19 04:00 97.5 F L 86 16 116/60 93 L 03/13/19 00:00 97.5 F L 78 20 131/73 93 L Weight Admit Weight 144 lb 4.8 oz Weight 144 lb 4.8 oz - Physical Exam General: Alert, Oriented x3, No acute distress HEENT: Atraumatic, PERRLA, EOMI, Mucous membr. moist/pink Lungs: Clear to auscultation, Normal air movement Cardiovascular: Regular rate, Normal S1, Normal S2, No murmurs, Gallops, Rubs Abdomen: Normal bowel sounds, Soft, No tenderness, No hepatospenomegaly, No masses Extremities: No clubbing, No cyanosis, No edema, Normal pulses, No tenderness/ swelling Skin: No rashes, No breakdown, No significant lesion Neurological: Normal gait, Normal speech, Strength at 5/5 X4 ext, Normal tone, Sensation intact, Cranial nerves 3-12 NL, Reflexes 2+ Psych/Mental Status: Mental status NL, Mood NL - Labs Result Diagrams: 03/11/19 06:50 03/11/19 06:50 Status: lab reviewed by me A/P - Plan Plan: Cont da-EPOCH-R monitor TLS labs: uric acid, LDH, Potassium, Phos, BUN/Cr cont IVF cont allopurinol
[2019-03-13] MEDS: predniSONE 50 MG TAB PO SCH (15:19)
[2019-03-13] MEDS: predniSONE 5 MG TAB PO SCH (15:20)
[2019-03-13] MEDS: Ondansetron 2MG/ML MDV 10 MG in Sodium Chloride 0.9% 50 ML IVP SCH (17:30)
[2019-03-13] MEDS: ETOPOSIDE IVPB SCH (18:03)
[2019-03-13] MEDS: SODIUM CHLORIDE 0.9% IVPB SCH ×2 (18:03→19:56)
[2019-03-13 18:05] LABS: Anion Gap 12 mmol/L (10-20); BUN (Urea Nitrogen) 19 mg/dL (8.9-20.6); Calc. Creatinine Clearance 105 mL/min (70-130); Calcium 9.8 mg/dL (7.8-10.44); Carbon Dioxide 28 mmol/L (22-29); Chloride 102 mmol/L (98-107); Estimated GFR-MDRD Greater than 90; Glucose 90 mg/dL (70-105); Phosphorus 3.3 mg/dL (2.3-4.7); Sodium 138 mmol/L (136-145); Uric Acid 2.9 mg/dL (3.5-7.2)
--- NOTE | 2019-03-13 18:46 | PDOC.HOSPP ---
- Subjective Encounter Date: 03/13/19 Encounter Time: 18:35 Subjective: f/u for Large B-cell lymphoma undergoing chemotherapy. Feels a little fatigued and some mild nausea. No fever or chills. - Objective Vital Signs & Weight: Vital Signs (12 hours) Temp Pulse Resp BP Pulse Ox 03/13/19 12:00 97.7 F 86 16 114/65 93 L 03/13/19 08:10 98.3 F 84 16 118/61 93 L 03/13/19 08:00 93 L Weight Admit Weight 144 lb 4.8 oz Weight 144 lb 4.8 oz I&O: 03/12/19 03/13/19 03/14/19 06:59 06:59 06:59 Intake Total 2615 480 Balance 2615 480 Result Diagrams: 03/11/19 06:50 03/13/19 17:25 EKG Reviewed by me: Yes (Sinus tachycardia) Hospitalist ROS - Medication Medications: Active Medications Generic Name Dose Route Start Last Admin Trade Name Freq PRN Reason Stop Dose Admin Allopurinol 300 mg 03/10/19 21:00 03/13/19 10:17 Zyloprim PO 300 mg BID VIKTORIA Administration Enoxaparin Sodium 40 mg 03/11/19 09:00 03/13/19 10:09 Lovenox SC Not Given 09 VIKTORIA Famotidine 20 mg 03/11/19 09:00 03/13/19 10:08 Pepcid PO 20 mg BID VIKTORIA Administration Etoposide 92 mg/ Sodium 504.6 mls @ 504.6 mls/hr 03/10/19 15:15 03/13/19 18: 03 Chloride IVPB 03/14/19 23:00 504.6 mls WILLCALL VIKTORIA Administration Fosaprepitant 125 mg/ Sodium 145 mls @ 290 mls/hr 03/11/19 00:45 03/11/19 11: 21 Chloride IVPB 145 mls WILLCALL VIKTORIA Administration Ondansetron HCl 10 mg/ 57 mls @ 114 mls/hr 03/11/19 10:00 03/11/19 10:20 Dexamethasone Sodium Phosphate IVPB 57 mls 20 mg/ Sodium Chloride WILLCALL VIKTORIA Administration Ondansetron HCl 10 mg/ Sodium 55 mls @ 110 mls/hr 03/12/19 13:30 03/13/19 17: 30 Chloride IVP 55 mls WILLCALL VIKTORIA Administration Ondansetron HCl 4 mg 03/10/19 16:50 03/10/19 20:00 Zofran IVP 4 mg Q6H PRN Administration Nausea/Vomiting Prednisone 100 mg 03/11/19 13:00 03/13/19 15:19 Prednisone PO 03/15/19 23:00 100 mg WILLCALL VIKTORIA Administration Prednisone 10 mg 03/12/19 13:30 03/13/19 15:20 Prednisone PO 03/15/19 23:00 10 mg WILLCALL VIKTORIA Administration Trimethoprim/Sulfamethoxazole 1 tab 03/12/19 09:00 03/12/19 13:38 Bactrim Ds PO Not Given MWF VIKTORIA - Exam General Appearance: NAD, awake alert Eye: PERRL, anicteric sclera ENT: normocephalic atraumatic, no oropharyngeal lesions Neck: supple, symmetric, no JVD, no thyromegaly Heart: RRR, no murmur, no gallops, no rubs, normal peripheral pulses Respiratory - other findings: diminished on R Gastrointestinal: soft, non-tender, non-distended, normal bowel sounds Extremities: no cyanosis, no clubbing, no edema Skin: normal turgor, no lesions Neurological: cranial nerve grossly intact, no new deficit Musculoskeletal: normal tone, normal strength Psychiatric: normal affect, A&O x 3 Hosp A/P (1) Large B-cell lymphoma Code(s): C85.10 - UNSPECIFIED B-CELL LYMPHOMA, UNSPECIFIED SITE Status: Acute Plan: Continue chemotherapy per protocol, serial BMP, CBC, continue Prednisone (2) JUAN (acute kidney injury) Code(s): N17.9 - ACUTE KIDNEY FAILURE, UNSPECIFIED Status: Acute Plan: Resolved (3) Sinus tachycardia Code(s): R00.0 - TACHYCARDIA, UNSPECIFIED Status: Acute Plan: Multifactorial due to chemo induction/Prednisone - Plan transition social worker, DVT proph w/SCDs Stable currently Continue chemotx per protocol Pain control as clinically indicated OOB/ambulate Ensure Enlive BID AM lab: BMP, LDH, Uric Acid, PO3
[2019-03-13] MEDS: DOXORUBICIN IVPB SCH (19:56)
[2019-03-13] MEDS: VINCRISTINE SULFATE IVPB SCH (19:56)
[2019-03-14 04:52] LABS: Anion Gap 12 mmol/L (10-20); BUN (Urea Nitrogen) 20 mg/dL (8.9-20.6); Calc. Creatinine Clearance 119 mL/min (70-130); Calcium 9.4 mg/dL (7.8-10.44); Carbon Dioxide 28 mmol/L (22-29); Chloride 102 mmol/L (98-107); Estimated GFR-MDRD Greater than 90; Glucose 111 mg/dL (70-105); Phosphorus 4.4 mg/dL (2.3-4.7); Potassium 4.2 mmol/L (3.5-5.1); Sodium 138 mmol/L (136-145); Uric Acid 2.8 mg/dL (3.5-7.2)
[2019-03-14] MEDS: Allopurinol 300 MG TAB PO SCH ×2 (09:07→21:14)
[2019-03-14] MEDS: Sulfameth/Trimethoprim DS 800-160mg TAB PO SCH (09:08)
[2019-03-14] MEDS: Famotidine 20 MG TAB PO SCH ×2 (09:08→21:14)
[2019-03-14] MEDS: Enoxaparin Sodium 40 MG/0.4 ML SYRINGE SC SCH (09:09)
[2019-03-14] MEDS: Ondansetron PF 4 MG/2 ML Vial IVP PRN (14:08)
--- NOTE | 2019-03-14 14:09 | PDOC.MOPN ---
Interval History: c/o stomach discomfort. Will take prn zofran. - Vital Signs Vital Signs: Vital Signs (12 hours) Temp Pulse Resp BP BP BP Pulse Ox 03/14/19 12:00 98.1 F 70 18 133/78 95 03/14/19 08:00 97.7 F 76 18 123/68 96 03/14/19 04:00 97.6 F 72 16 124/61 92 L Weight Admit Weight 144 lb 4.8 oz Weight 144 lb 4.8 oz - Physical Exam General: Alert, Oriented x3, No acute distress HEENT: Atraumatic, PERRLA, EOMI, Mucous membr. moist/pink Lungs: Clear to auscultation, Normal air movement Cardiovascular: Regular rate, Normal S1, Normal S2, No murmurs, Gallops, Rubs Abdomen: Normal bowel sounds, Soft, No tenderness, No hepatospenomegaly, No masses Extremities: No clubbing, No cyanosis, No edema, Normal pulses, No tenderness/ swelling Skin: No rashes, No breakdown, No significant lesion Neurological: Normal gait, Normal speech, Strength at 5/5 X4 ext, Normal tone, Sensation intact, Cranial nerves 3-12 NL, Reflexes 2+ Psych/Mental Status: Mental status NL, Mood NL - Labs Result Diagrams: 03/11/19 06:50 03/14/19 04:02 Lab results: Laboratory Results - last 24 hr 03/14/19 04:02: Lactate Dehydrogenase 389 H 03/14/19 04:02: Sodium 138, Potassium 4.2, Chloride 102, Carbon Dioxide 28, Anion Gap 12, BUN 20, Creatinine 0.91, Estimated GFR (MDRD) Greater than 90, Glucose 111 H, Uric Acid 2.8 L, Calcium 9.4, Phosphorus 4.4 03/13/19 17:25: Lactate Dehydrogenase 505 H 03/13/19 17:25: Sodium 138, Potassium 4.0, Chloride 102, Carbon Dioxide 28, Anion Gap 12, BUN 19, Creatinine 1.03, Estimated GFR (MDRD) Greater than 90, Glucose 90, Uric Acid 2.9 L, Calcium 9.8, Phosphorus 3.3 Status: lab reviewed by me A/P - Problem (1) Large B-cell lymphoma Current Visit: Yes Code(s): C85.10 - UNSPECIFIED B-CELL LYMPHOMA, UNSPECIFIED SITE Status: Acute - Plan Plan: no evidence of TLS continue am labs, IVF antiemetics prn completes chemo early Sunday AM, fulphila 24 hours after chemo.
[2019-03-14] MEDS: predniSONE 5 MG TAB PO SCH (15:54)
[2019-03-14] MEDS: predniSONE 50 MG TAB PO SCH (15:54)
--- NOTE | 2019-03-14 17:47 | EKG ---
Test Reason : STAT Blood Pressure : / mmHG Vent. Rate : 066 BPM Atrial Rate : 066 BPM P-R Int : 148 ms QRS Dur : 094 ms QT Int : 388 ms P-R-T Axes : 043 088 076 degrees QTc Int : 406 ms Sinus rhythm with marked sinus arrhythmia Otherwise normal ECG No previous ECGs available Confirmed by Jes SEGUNDO ([id number]) on 03/14/2019 5:47:11 PM Referred By: NICOLETTE GRANADOS Confirmed By:Jes SEGUNDO
--- NOTE | 2019-03-14 18:34 | PDOC.HOSPP ---
- Subjective Encounter Date: 03/14/19 Encounter Time: 18:35 Subjective: f/u for Large B-cell lymphoma undergoing current chemotherapy with plans to complete on 03/16/19. Some abd cramping and nausea controlled with Zofran. - Objective Vital Signs & Weight: Vital Signs (12 hours) Temp Pulse Resp BP BP Pulse Ox 03/14/19 16:00 98.0 F 85 18 151/81 H 95 03/14/19 12:00 98.1 F 70 18 133/78 95 03/14/19 08:00 97.7 F 76 18 123/68 96 Weight Admit Weight 144 lb 4.8 oz Weight 144 lb 4.8 oz I&O: 03/13/19 03/14/19 03/15/19 06:59 06:59 06:59 Intake Total 480 Balance 480 Result Diagrams: 03/11/19 06:50 03/14/19 04:02 Additional Labs: Laboratory Tests 03/10/19 03/10/19 03/10/19 15:20 15:20 15:20 WBC 7.3 Band Neuts % (Manual) 17 H Creatinine 1.33 H Uric Acid Lactate Dehydrogenase B-Natriuretic Peptide 12.4 03/10/19 03/10/19 03/13/19 15:20 16:53 17:25 WBC Band Neuts % (Manual) Creatinine Uric Acid 3.5 2.9 L Lactate Dehydrogenase 590 H B-Natriuretic Peptide 03/13/19 03/14/19 03/14/19 17:25 04:02 04:02 WBC Band Neuts % (Manual) Creatinine Uric Acid 2.8 L Lactate Dehydrogenase 505 H 389 H B-Natriuretic Peptide Hospitalist ROS - Medication Medications: Active Medications Generic Name Dose Route Start Last Admin Trade Name Freq PRN Reason Stop Dose Admin Allopurinol 300 mg 03/10/19 21:00 03/14/19 09:07 Zyloprim PO 300 mg BID VIKTORIA Administration Enoxaparin Sodium 40 mg 03/11/19 09:00 03/14/19 09:09 Lovenox SC Not Given 09 VIKTORIA Famotidine 20 mg 03/11/19 09:00 03/14/19 09:08 Pepcid PO 20 mg BID VIKTORIA Administration Etoposide 92 mg/ Sodium 504.6 mls @ 504.6 mls/hr 03/10/19 15:15 03/13/19 18: 03 Chloride IVPB 03/14/19 23:00 504.6 mls WILLCALL VIKTORIA Administration Fosaprepitant 125 mg/ Sodium 145 mls @ 290 mls/hr 03/11/19 00:45 03/11/19 11: 21 Chloride IVPB 145 mls WILLCALL VIKTORIA Administration Ondansetron HCl 10 mg/ 57 mls @ 114 mls/hr 03/11/19 10:00 03/11/19 10:20 Dexamethasone Sodium Phosphate IVPB 57 mls 20 mg/ Sodium Chloride WILLCALL VIKTORIA Administration Ondansetron HCl 10 mg/ Sodium 55 mls @ 110 mls/hr 03/12/19 13:30 03/13/19 17: 30 Chloride IVP 55 mls WILLCALL VIKTORIA Administration Doxorubicin HCl 18 mg/ 100 mls @ 0 mls/hr 03/13/19 08:15 03/13/19 19:56 Vincristine Sulfate 0.7 mg/ IVPB 03/14/19 23:00 100 mls Sodium Chloride WILLCALL VIKTORIA Administration As Directed Ondansetron HCl 4 mg 03/10/19 16:50 03/14/19 14:08 Zofran IVP 4 mg Q6H PRN Administration Nausea/Vomiting Prednisone 100 mg 03/11/19 13:00 03/14/19 15:54 Prednisone PO 03/15/19 23:00 100 mg WILLCALL VIKTORIA Administration Prednisone 10 mg 03/12/19 13:30 03/14/19 15:54 Prednisone PO 03/15/19 23:00 10 mg WILLCALL VIKTORIA Administration Trimethoprim/Sulfamethoxazole 1 tab 03/12/19 09:00 03/14/19 09:08 Bactrim Ds PO 1 tab MWF VIKTORIA Administration - Exam General Appearance: NAD, awake alert Eye: PERRL, anicteric sclera ENT: normocephalic atraumatic, no oropharyngeal lesions Neck: supple, symmetric, no JVD, no thyromegaly Heart: RRR, no murmur, no gallops, no rubs, normal peripheral pulses Respiratory: no wheezes Respiratory - other findings: diminished in R field Gastrointestinal: soft, non-tender, non-distended, normal bowel sounds Extremities: no cyanosis, no clubbing, no edema Skin: normal turgor, no lesions Neurological: cranial nerve grossly intact, no new deficit Musculoskeletal: normal tone, normal strength, no muscle wasting Psychiatric: normal affect, A&O x 3 Hosp A/P (1) Large B-cell lymphoma Code(s): C85.10 - UNSPECIFIED B-CELL LYMPHOMA, UNSPECIFIED SITE Status: Acute Plan: Continue current chemotx regimen per Medical oncology service (2) JUAN (acute kidney injury) Code(s): N17.9 - ACUTE KIDNEY FAILURE, UNSPECIFIED Status: Acute Plan: Resolved, continue to monitor clinically (3) Sinus tachycardia Code(s): R00.0 - TACHYCARDIA, UNSPECIFIED Status: Acute Plan: Resolved - Plan social work case manager, out of bed/ambulate, DVT proph w/SCDs Stable currently Continue chemotx per protocol Pain control as clinically indicated OOB/ambulate Ensure Enlive BID
[2019-03-14] MEDS: ETOPOSIDE IVPB SCH (21:14)
[2019-03-14] MEDS: SODIUM CHLORIDE 0.9% IVPB SCH ×2 (21:14→22:44)
[2019-03-14] MEDS: DOXORUBICIN IVPB SCH (22:44)
[2019-03-14] MEDS: VINCRISTINE SULFATE IVPB SCH (22:44)
[2019-03-15 04:51] LABS: Anion Gap 11 mmol/L (10-20); BUN (Urea Nitrogen) 19 mg/dL (8.9-20.6); Calc. Creatinine Clearance 112 mL/min (70-130); Calcium 9.5 mg/dL (7.8-10.44); Carbon Dioxide 30 mmol/L (22-29); Chloride 102 mmol/L (98-107); Estimated GFR-MDRD Greater than 90; Glucose 112 mg/dL (70-105); Sodium 139 mmol/L (136-145); Uric Acid 2.8 mg/dL (3.5-7.2)
[2019-03-15 05:03] LABS: Band 4 % (5-11); Hemoglobin 14.1 g/dL (14.0-18.0); Lymphocytes 4 % (21-51); MDiff Complete? YES; Mean Corpuscular HGB CONC 35.2 g/dL (32.0-36.0); Mean Corpuscular Hemoglobin 30.1 pg (27.0-31.0); Mean Corpuscular Volume 85.6 fL (78.0-98.0); Mean Platelet Volume 7.9 fL (7.4-10.4); Monocytes 1 % (0-10); Neutrophil 91 % (42-75); Platelet Count 163 thou/uL (130-400); Platelet Morphology Comment Appears Adequate; RBC Distribution Width 11.5 % (11.5-14.5); Red Blood Cell (RBC) Count 4.68 mill/uL (4.70-6.10); White Blood Cell (WBC) Count 5.3 thou/uL (4.8-10.8)
[2019-03-15] MEDS: Allopurinol 300 MG TAB PO SCH ×2 (09:53→20:03)
[2019-03-15] MEDS: Famotidine 20 MG TAB PO SCH ×2 (09:53→20:03)
[2019-03-15] MEDS: Enoxaparin Sodium 40 MG/0.4 ML SYRINGE SC SCH (09:54)
--- NOTE | 2019-03-15 12:17 | PDOC.HOSPP ---
- Subjective Encounter Date: 03/15/19 Encounter Time: 11:00 Subjective: tolerating chemotherapy some nausea controlled with zofran - Objective Vital Signs & Weight: Vital Signs (12 hours) Temp Pulse Resp BP Pulse Ox 03/15/19 08:00 97.5 F L 70 18 119/60 95 Weight Admit Weight 144 lb 4.8 oz Weight 144 lb 4.8 oz I&O: 03/14/19 03/15/19 03/16/19 06:59 06:59 06:59 Intake Total 1470.4 Balance 1470.4 Result Diagrams: 03/15/19 04:02 03/15/19 04:01 Hospitalist ROS - Medication Medications: Active Medications Generic Name Dose Route Start Last Admin Trade Name Freq PRN Reason Stop Dose Admin Allopurinol 300 mg 03/10/19 21:00 03/15/19 09:53 Zyloprim PO 300 mg BID VIKTORIA Administration Enoxaparin Sodium 40 mg 03/11/19 09:00 03/15/19 09:54 Lovenox SC Not Given 899 VIKTORIA Famotidine 20 mg 03/11/19 09:00 03/15/19 09:53 Pepcid PO 20 mg BID VIKTORIA Administration Fosaprepitant 125 mg/ Sodium 145 mls @ 290 mls/hr 03/11/19 00:45 03/11/19 11: 21 Chloride IVPB 145 mls WILLCALL VIKTORIA Administration Ondansetron HCl 10 mg/ 57 mls @ 114 mls/hr 03/11/19 10:00 03/11/19 10:20 Dexamethasone Sodium Phosphate IVPB 57 mls 20 mg/ Sodium Chloride WILLCALL VIKTORIA Administration Ondansetron HCl 10 mg/ Sodium 55 mls @ 110 mls/hr 03/12/19 13:30 03/13/19 17: 30 Chloride IVP 55 mls WILLCALL VIKTORIA Administration Ondansetron HCl 4 mg 03/10/19 16:50 03/14/19 14:08 Zofran IVP 4 mg Q6H PRN Administration Nausea/Vomiting Prednisone 100 mg 03/11/19 13:00 03/14/19 15:54 Prednisone PO 03/15/19 23:00 100 mg WILLCALL VIKTORIA Administration Prednisone 10 mg 03/12/19 13:30 03/14/19 15:54 Prednisone PO 12/07/19 23:00 10 mg WILLCALL VIKTORIA Administration Sodium Chloride 10 ml 03/14/19 21:00 03/15/19 09:54 Flush - Normal Saline IVF 10 ml Q12HR VIKTORIA Administration Trimethoprim/Sulfamethoxazole 1 tab 03/12/19 09:00 03/14/19 09:08 Bactrim Ds PO 1 tab MWF VIKTORIA Administration - Exam General Appearance: awake alert Eye: PERRL, anicteric sclera ENT: no oropharyngeal lesions, moist mucosa Neck: supple, no JVD Heart: RRR, no murmur Respiratory: no wheezes, no rales Gastrointestinal: soft, non-tender, non-distended, normal bowel sounds Extremities: no cyanosis, no edema Neurological: cranial nerve grossly intact, no focal deficits Psychiatric: normal affect, A&O x 3 Hosp A/P (1) Large B-cell lymphoma Code(s): C85.10 - UNSPECIFIED B-CELL LYMPHOMA, UNSPECIFIED SITE Status: Acute (2) JUAN (acute kidney injury) Code(s): N17.9 - ACUTE KIDNEY FAILURE, UNSPECIFIED Status: Resolved - Plan is on chemotherapy, day 5 today dc plan per onc adv to check labs in am including wbc, uric acid hemostable encourage po intake to ambulate as tolerated
[2019-03-15] MEDS ORDERED: SODIUM CHLORIDE 0.9% IVPB SCH (13:30)
[2019-03-15] MEDS ORDERED: Palonosetron HCl 0.25 MG in Sodium Chloride 0.9% 50 ML IVPB SCH ×2 (13:30→23:45)
[2019-03-15] MEDS ORDERED: CYCLOPHOSPHAMIDE IVPB SCH (13:30)
[2019-03-15] MEDS: predniSONE 50 MG TAB PO SCH (14:10)
[2019-03-15] MEDS: predniSONE 5 MG TAB PO SCH (14:11)
[2019-03-16 03:58] LABS: #Lymphocytes 0.2 thou/uL (1.20-3.40); #Monocytes 0.1 thou/uL (0.11-0.59); #Neutrophils 6.2 thou/uL (1.40-6.50); %Eosinophils 0.2 % (0.0-10.0); %Lymphocytes 3.7 % (21.0-51.0); %Monocytes 0.8 % (0.0-10.0); %Neutrophils 95.3 % (42.0-75.0); Hemoglobin 13.9 g/dL (14.0-18.0); Mean Corpuscular HGB CONC 34.9 g/dL (32.0-36.0); Mean Corpuscular Hemoglobin 29.7 pg (27.0-31.0); Mean Platelet Volume 7.4 fL (7.4-10.4); Platelet Count 174 thou/uL (130-400); RBC Distribution Width 11.2 % (11.5-14.5); Red Blood Cell (RBC) Count 4.67 mill/uL (4.70-6.10); White Blood Cell (WBC) Count 6.5 thou/uL (4.8-10.8)
[2019-03-16 04:19] LABS: ALT (SGPT) 97 U/L (8-55); AST (SGOT) 54 U/L (5-34); Albumin 3.9 g/dL (3.5-5.0); Alkaline Phosphatase 59 U/L (40-110); Anion Gap 11 mmol/L (10-20); BUN (Urea Nitrogen) 19 mg/dL (8.9-20.6); Bilirubin, Total 0.7 mg/dL (0.2-1.2); Calc. Creatinine Clearance 132 mL/min (70-130); Calcium 9.7 mg/dL (7.8-10.44); Carbon Dioxide 31 mmol/L (22-29); Chloride 100 mmol/L (98-107); Estimated GFR-MDRD Greater than 90; Globulin 2.2 g/dL (2.4-3.5); Glucose 101 mg/dL (70-105); Potassium 3.8 mmol/L (3.5-5.1); Protein, Total 6.1 g/dL (6.0-8.3); Sodium 138 mmol/L (136-145); Uric Acid 2.8 mg/dL (3.5-7.2)
[2019-03-16 08:36] VITALS: BP 116/59; TEMP 97.6
[2019-03-16] MEDS ORDERED: PEGFILGRASTIM-JMDB 6 MG/0.6 ML SYRINGE SQ SCH (13:30)
--- NOTE | 2019-03-17 14:21 | DIS ---
DATE OF ADMISSION: 03/10/2019 DATE OF DISCHARGE: 03/16/2019 DISCHARGE DISPOSITION: To home. PRIMARY DISCHARGE DIAGNOSIS: Large B-cell lymphoma, initiated on chemotherapy for cycle here. PROCEDURES DONE DURING HOSPITALIZATION: H and H on discharge 13 and 39, white count of 6.5, MCV 85, platelet count 174 with 95% neutrophils. Discharge BUN and creatinine are 19 and 0.8. AST 54, ALT 97, alkaline phosphatase 59, LDH 362 on the 7th. Uric acid was 2.8 on the day of discharge. DISCHARGE MEDICATIONS: 1. Allopurinol 300 mg p.o. twice daily. 2. Omeprazole 20 mg daily. 3. Zofran p.r.n. 4. Bactrim Double Strength one tablet on Sunday, Sunday, and Sunday. ALLERGIES: NO KNOWN DRUG ALLERGIES. DISCHARGE PLAN: The patient to follow up with Dr. Haresh Rizo on 03/17/2019. 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 He was initiated on EPOCH-R chemotherapy here. He was closely monitored for tumor lysis syndrome, which did not occur. He has tolerated his chemotherapy well. He has finished his 5-day course of chemotherapy and will be shortly discharged home per Oncology advice. He needs to follow up with Dr. Haresh Rizo on the . He is otherwise hemodynamically stable and will be shortly discharged home. Please note, I have seen and examined the patient on the day of discharge. Job ID: [id number]
== END 2019-03-16 12:22 | disposition home or self-care (01) | DRG 847 ==
LOC: ONC 14:39
PROVIDERS: ADMIT Internal Medicine Hematology & Oncology; ATTEND Internal Medicine Hematology & Oncology
DX: Z51.11 Encounter for antineoplastic chemotherapy (principal); C85.20 Mediastinal (thymic) large B-cell lymphoma, unspecified site; N17.9 Acute kidney failure, unspecified; T45.1X5A Adverse effect of antineoplastic and immunosuppressive drugs, initial encounter; R00.0 Tachycardia, unspecified; T38.0X5A Adverse effect of glucocorticoids and synthetic analogues, initial encounter
CPT/HCPCS: 36415; 71045; 80048; 80053; 83615; 83880; 84100; 84550; 85007; 85025; 85027; 85610; 85730; 93005; 93010; 93306; J1100; J1200; J1453; J1650; J2270; J2405; J2469; J3490; J7050; J7512; J9000; J9070; J9181; J9312; J9370; S0028

== ENCOUNTER 2019-03-31 09:46 | Inpatient (IN) | payer OTHER ==
[2019-03-31] MEDS ORDERED: SODIUM CHLORIDE 0.9% IVPB SCH ×3 (10:45→17:30)
[2019-03-31] MEDS ORDERED: Dexamethasone 20 MG, Admixture Fee 1 EACH in Sodium Chloride 0.9% 50 ML IVPB SCH (10:45)
[2019-03-31] MEDS ORDERED: RITUXIMAB IVPB SCH (10:45)
[2019-03-31] MEDS ORDERED: Famotidine/PF 20 mg/2ml Vial SLOW IVP SCH (10:45)
[2019-03-31] MEDS ORDERED: Acetaminophen 325 MG TAB PO SCH (10:45)
[2019-03-31] MEDS ORDERED: SODIUM CHLORIDE 0.9% IVP SCH (11:00)
[2019-03-31] MEDS ORDERED: DOXORUBICIN IVP SCH (11:00)
[2019-03-31] MEDS ORDERED: VINCRISTINE SULFATE IVP SCH (11:00)
[2019-03-31] MEDS ORDERED: ETOPOSIDE IVPB SCH (11:00)
[2019-03-31] MEDS ORDERED: Dexamethasone Sod Phosphate 20 MG in Sodium Chloride 0.9% 50 ML IVPB SCH (11:45)
[2019-03-31] MEDS ORDERED: Ondansetron 2MG/ML MDV 10 MG in Sodium Chloride 0.9% 50 ML IVP SCH (14:00)
[2019-03-31] MEDS ORDERED: Guaifenesin DM 100-10/5 ML UDCUP PO PRN (14:32)
[2019-03-31] MEDS ORDERED: Senokot S 8.6-50 MG TAB PO PRN (14:32)
[2019-03-31] MEDS ORDERED: Calcium Carbonate 500 MG ChewTAB PO PRN (14:32)
[2019-03-31] MEDS ORDERED: Bisacodyl 10 MG SUPP PR PRN (14:32)
[2019-03-31] MEDS ORDERED: HYDROcodone/Acetaminophen 5/325 mg Tablet PO PRN (14:32)
--- NOTE | 2019-03-31 15:22 | HP ---
REASON FOR ADMISSION: Second cycle of chemotherapy for lymphoma. HISTORY OF PRESENTING ILLNESS: The patient is being sent over from Dr. Rizo's office for a second cycle of chemotherapy. He has history of large B-cell lymphoma. He was initiated on EPOCH-R chemotherapy here. He will be starting his second cycle from today. Post his first cycle of chemotherapy, the patient has lost some scalp hair. Since then, he has shaved his head. He had constipation for a week after the chemotherapy cycle, but all of it has resolved. He is able to lay flat now, which he was unable to do before the first cycle of chemotherapy due to large mass in his mediastinum. No fever, chest pain, cough, or expectoration. PAST MEDICAL AND SURGICAL HISTORY: 1. History of B-cell lymphoma with a large anterior mediastinal mass. 2. PICC line in the left upper extremity. 3. [place] tooth extraction. CURRENT MEDICATIONS: 1. Zofran p.r.n. 2. Omeprazole 20 mg daily. 3. Allopurinol 300 mg twice daily. 4. Bactrim Double Strength 1 tab on Sunday, Sunday, Sunday. FAMILY HISTORY: Both parents are healthy. Grandmother has had breast cancer. Grandfather has had prostate cancer. Grandmother also had history of lymphoma. PERSONAL HISTORY: Does not abuse alcohol or drugs. No history of smoking. He is currently an architecture student at [employer] . ALLERGIES: NO KNOWN DRUG ALLERGIES. CODE STATUS: Full. REVIEW OF SYSTEMS: CONSTITUTIONAL: Negative for weight loss or gain, ability to conduct usual activities. SKIN: Negative for rash, itching. EYES: Negative for double vision, pain. ENT/MOUTH: Negative for nose bleeding, neck stiffness, pain, tenderness. CARDIOVASCULAR: Negative for palpitations, dyspnea on exertion, orthopnea. RESPIRATORY: Negative for shortness of breath, wheezing, cough, hemoptysis, fever or night sweats. GASTROINTESTINAL: Negative for poor appetite, abdominal pain, heartburn, nausea , vomiting, constipation, or diarrhea. GENITOURINARY: Negative for urgency, frequency, dysuria, nocturia. MUSCULOSKELETAL: Negative for pain, swelling. NEUROLOGIC/PSYCHIATRIC: Negative for anxiety, depression. ALLERGY/IMMUNOLOGIC: Negative for skin rash, bleeding tendency. PHYSICAL EXAMINATION: GENERAL: The patient is a 19-year-old male, who is currently not in any acute distress. VITAL SIGNS: Blood pressure is 124/74, pulse 74 per minute, respiratory rate 16 per minute, temperature 97.5 degrees Fahrenheit, saturating 100% on room air. NECK: Supple. No elevated JVD. HEENT: Eyes; extraocular muscles intact. Pupils reacting to light. Oral cavity; mucous membranes are moist. No exudates or congestion. CARDIOVASCULAR: S1, S2 heard. Regular rhythm. RESPIRATORY: Air entry 2+ bilateral. No rales or rhonchi. ABDOMEN: Soft. Bowel sounds heard. No tenderness, rigidity, or guarding. EXTREMITIES: No peripheral edema or calf tenderness. VASCULAR: Peripheral pulses 2+ bilateral. No ischemic ulcerations or gangrene. CENTRAL NERVOUS SYSTEM: No gross focal deficits noted. The patient is alert, awake, oriented well. PSYCHIATRIC: The patient's mood is euthymic. No hallucinations or delusions. LABORATORY DATA: Electrolytes stable. BUN 13, creatinine 0.8, serum glucose 69 , uric acid 5.3, calcium 9.3, phosphorus 4.0, total bilirubin is within normal limits. AST 59, ALT 114, alkaline phosphatase 122, LDH is 327, albumin 4.3. CBC done at the clinic this morning shows a white count of 12, H and H are 14 and 40, platelet count 122. IMPRESSION AND PLAN: The patient will be admitted to Oncology floor for second cycle of chemotherapy. He is essentially getting second cycle of EPOCH-R therapy. This will be closely monitored by Dr. Haresh Rizo. He will also be on allopurinol to prevent tumor lysis syndrome. We will continue to closely monitor him on Oncology floor. He is currently hemodynamically stable. Job ID: [id number] [facility]
[2019-03-31] MEDS ORDERED: ADMIXTURE FEE CHEMO IVPB SCH (17:30)
[2019-03-31] MEDS ORDERED: DIPHENHYDRAMINE IVPB SCH (17:30)
[2019-03-31] MEDS: SODIUM CHLORIDE 0.9% IVPB SCH ×2 (18:09→18:43)
[2019-03-31] MEDS: DIPHENHYDRAMINE IVPB SCH ×2 (18:09→18:43)
[2019-03-31] MEDS: ADMIXTURE FEE CHEMO IVPB SCH ×2 (18:09→18:43)
[2019-03-31] MEDS ORDERED: predniSONE 50 MG TAB PO SCH (18:30)
[2019-03-31] MEDS ORDERED: predniSONE 20 MG TAB PO SCH (18:30)
[2019-03-31] MEDS: Sulfameth/Trimethoprim DS 800-160mg TAB PO SCH (19:09)
[2019-03-31] MEDS: Famotidine 20 MG TAB PO SCH (22:00)
[2019-04-01] MEDS: SODIUM CHLORIDE 0.9% IVPB SCH (01:01)
[2019-04-01] MEDS: DOXORUBICIN IVPB SCH (01:01)
[2019-04-01 04:24] LABS: ALT (SGPT) 98 U/L (8-55); AST (SGOT) 43 U/L (5-34); Albumin 4.1 g/dL (3.5-5.0); Alkaline Phosphatase 124 U/L (40-110); Anion Gap 10 mmol/L (10-20); BUN (Urea Nitrogen) 13 mg/dL (8.9-20.6); Bilirubin, Total 0.4 mg/dL (0.2-1.2); Calc. Creatinine Clearance 113 mL/min (70-130); Calcium 9.4 mg/dL (7.8-10.44); Carbon Dioxide 28 mmol/L (22-29); Chloride 107 mmol/L (98-107); Estimated GFR-MDRD Greater than 90; Globulin 2.3 g/dL (2.4-3.5); Glucose 175 mg/dL (70-105); Phosphorus 2.6 mg/dL (2.3-4.7); Potassium 4.6 mmol/L (3.5-5.1); Protein, Total 6.4 g/dL (6.0-8.3); Sodium 140 mmol/L (136-145); Uric Acid 4.5 mg/dL (3.5-7.2)
[2019-04-01 05:51] LABS: Band 17 % (5-11); Hemoglobin 13.7 g/dL (14.0-18.0); Lymphocytes 2 % (21-51); MDiff Complete? YES; Mean Corpuscular Hemoglobin 30.1 pg (27.0-31.0); Mean Corpuscular Volume 83.8 fL (78.0-98.0); Mean Platelet Volume 8.4 fL (7.4-10.4); Monocytes 3 % (0-10); Neutrophil 78 % (42-75); Platelet Count 130 thou/uL (130-400); RBC Distribution Width 12.4 % (11.5-14.5); Red Blood Cell (RBC) Count 4.55 mill/uL (4.70-6.10); White Blood Cell (WBC) Count 22.1 thou/uL (4.8-10.8)
[2019-04-01] MEDS ORDERED: predniSONE 20 MG TAB PO SCH ×2 (08:00→17:00)
[2019-04-01] MEDS: Enoxaparin Sodium 40 MG/0.4 ML SYRINGE SC SCH (09:00)
[2019-04-01] MEDS: Famotidine 20 MG TAB PO SCH ×2 (09:30→20:30)
--- NOTE | 2019-04-01 11:30 | PDOC.HOSPP ---
- Subjective Encounter Date: 04/01/19 Encounter Time: 11:15 Subjective: no sob or pain is working on his laptop - Objective Vital Signs & Weight: Vital Signs (12 hours) Temp Pulse Resp BP Pulse Ox 04/01/19 08:31 97.8 F 84 16 120/71 98 04/01/19 08:00 98 04/01/19 03:47 97.9 F 79 16 113/55 L 97 Weight Weight 141 lb 4.003 oz I&O: 03/31/19 04/01/19 04/02/19 06:59 06:59 06:59 Intake Total 500 Balance 500 Result Diagrams: 04/01/19 03:38 04/01/19 03:38 Hospitalist ROS - Medication Medications: Active Medications Generic Name Dose Route Start Last Admin Trade Name Freq PRN Reason Stop Dose Admin Famotidine 20 mg 03/31/19 21:00 04/01/19 09:30 Pepcid PO 20 mg BID VIKTORIA Administration Doxorubicin HCl 18 mg/ Sodium 259 mls @ 0 mls/hr 03/31/19 14:30 04/01/19 01: 01 Chloride IVPB 259 mls WILLCALL VIKTORIA Administration As Directed Trimethoprim/Sulfamethoxazole 1 tab 03/31/19 18:30 03/31/19 19:09 Bactrim Ds PO 1 tab [id number] VIKTORIA Administration - Exam General Appearance: NAD, awake alert Eye: PERRL, anicteric sclera ENT: no oropharyngeal lesions, moist mucosa Neck: supple, no JVD Heart: RRR, no murmur Respiratory: no wheezes, no rales Gastrointestinal: soft, non-tender, non-distended, normal bowel sounds Extremities: no cyanosis, no edema Neurological: cranial nerve grossly intact, no focal deficits Psychiatric: normal affect, A&O x 3 Hosp A/P (1) Elevated LFTs Code(s): R94.5 - ABNORMAL RESULTS OF LIVER FUNCTION STUDIES Status: Acute (2) Large B-cell lymphoma Code(s): C85.10 - UNSPECIFIED B-CELL LYMPHOMA, UNSPECIFIED SITE Status: Acute - Plan is tolerating chemotherapy renal function is normal slight elevation in lft's hemostable will f/u to ambulate as tolerated
--- NOTE | 2019-04-01 15:29 | RAD ---
Frontal view chest COMPARISON: 03/10/2019 INDICATION: Procedural evaluation FINDINGS: Masslike density of the right perihilar region is present, diminished in size from prior ex am. Left-sided PICC line is in place with tip overlying cavoatrial junction. Chest is otherwise similar. IMPRESSION: Decreased size of right perihilar mass.
[2019-04-01] MEDS: predniSONE 50 MG TAB PO SCH (19:21)
[2019-04-01] MEDS: predniSONE 20 MG TAB PO SCH (19:21)
[2019-04-02] MEDS: Ondansetron 2MG/ML MDV 10 MG in Sodium Chloride 0.9% 50 ML IVP SCH (01:46)
[2019-04-02] MEDS: ETOPOSIDE IVPB SCH (03:13)
[2019-04-02] MEDS: SODIUM CHLORIDE 0.9% IVPB SCH ×2 (03:13→04:32)
[2019-04-02] MEDS: DOXORUBICIN IVPB SCH (04:32)
[2019-04-02 04:58] LABS: #Eosinphils 0.1 thou/uL (0.0-0.7); #Lymphocytes 0.4 thou/uL (1.20-3.40); #Monocytes 0.3 thou/uL (0.11-0.59); #Neutrophils 18.3 thou/uL (1.40-6.50); %Eosinophils 0.3 % (0.0-10.0); %Lymphocytes 2.1 % (21.0-51.0); %Monocytes 1.3 % (0.0-10.0); %Neutrophils 96.3 % (42.0-75.0); Hemoglobin 13.4 g/dL (14.0-18.0); Mean Corpuscular HGB CONC 35.5 g/dL (32.0-36.0); Mean Corpuscular Hemoglobin 29.9 pg (27.0-31.0); Mean Corpuscular Volume 84.2 fL (78.0-98.0); Mean Platelet Volume 8.5 fL (7.4-10.4); Platelet Count 153 thou/uL (130-400); RBC Distribution Width 12.5 % (11.5-14.5); Red Blood Cell (RBC) Count 4.49 mill/uL (4.70-6.10); White Blood Cell (WBC) Count 19.1 thou/uL (4.8-10.8)
[2019-04-02 05:22] LABS: ALT (SGPT) 80 U/L (8-55); AST (SGOT) 27 U/L (5-34); Albumin 4.2 g/dL (3.5-5.0); Alkaline Phosphatase 105 U/L (40-110); Anion Gap 13 mmol/L (10-20); BUN (Urea Nitrogen) 14 mg/dL (8.9-20.6); Bilirubin, Total 0.4 mg/dL (0.2-1.2); Calc. Creatinine Clearance 127 mL/min (70-130); Calcium 9.3 mg/dL (7.8-10.44); Carbon Dioxide 26 mmol/L (22-29); Chloride 105 mmol/L (98-107); Estimated GFR-MDRD Greater than 90; Globulin 2.2 g/dL (2.4-3.5); Glucose 140 mg/dL (70-105); Potassium 4.3 mmol/L (3.5-5.1); Protein, Total 6.4 g/dL (6.0-8.3); Sodium 140 mmol/L (136-145); Uric Acid 3.8 mg/dL (3.5-7.2)
[2019-04-02] MEDS: Famotidine 20 MG TAB PO SCH ×3 (09:00→19:17)
[2019-04-02] MEDS ORDERED: Sulfameth/Trimethoprim DS 800-160mg TAB PO SCH (09:00)
[2019-04-02] MEDS: Enoxaparin Sodium 40 MG/0.4 ML SYRINGE SC SCH (09:30)
--- NOTE | 2019-04-02 12:14 | PDOC.HOSPP ---
- Subjective Encounter Date: 04/02/19 Encounter Time: 11:00 Subjective: no sob or pain comfortable on bed - Objective Vital Signs & Weight: Weight Admit Weight 141 lb 4.003 oz Weight 141 lb I&O: 04/01/19 04/02/19 04/03/19 06:59 06:59 06:59 Intake Total 500 1000 Balance 500 1000 Result Diagrams: 04/02/19 04:43 04/02/19 04:43 Hospitalist ROS - Medication Medications: Active Medications Generic Name Dose Route Start Last Admin Trade Name Jc PRN Reason Stop Dose Admin Enoxaparin Sodium 40 mg 04/01/19 09:00 04/01/19 09:00 Lovenox SC Not Given 09 VIKTORIA Famotidine 20 mg 03/31/19 21:00 04/02/19 10:48 Pepcid PO 20 mg BID VIKTORIA Administration Ondansetron HCl 10 mg/ Sodium 55 mls @ 330 mls/hr 04/01/19 09:00 04/02/19 01: 46 Chloride IVP 55 mls DAILY VIKTORIA Administration Doxorubicin HCl 18 mg/ Sodium 259 mls @ 0 mls/hr 03/31/19 14:30 04/02/19 04: 32 Chloride IVPB 259 mls WILLCALL VIKTORIA Administration As Directed Etoposide 92 mg/ Sodium 504.6 mls @ 504.6 mls/hr 04/01/19 14:30 04/02/19 03: 13 Chloride IVPB 504.6 mls WILLCALL VIKTORIA Administration Prednisone 10 mg 04/01/19 17:00 04/01/19 19:21 Prednisone PO 04/04/19 17:01 10 mg QPM-WM VIKTORIA Administration Prednisone 100 mg 04/01/19 17:00 04/01/19 19:21 Prednisone PO 04/04/19 17:01 100 mg QPM-WM VIKTORIA Administration Trimethoprim/Sulfamethoxazole 1 tab 03/31/19 18:30 03/31/19 19:09 Bactrim Ds PO 1 tab [id number] VIKTORIA Administration - Exam General Appearance: awake alert Eye: PERRL, anicteric sclera ENT: no oropharyngeal lesions, moist mucosa Neck: supple, no JVD Heart: RRR, no murmur Respiratory: no wheezes, no rales Gastrointestinal: soft, non-tender, non-distended, normal bowel sounds Extremities: no cyanosis, no edema Neurological: cranial nerve grossly intact, no focal deficits Psychiatric: normal affect, A&O x 3 Hosp A/P (1) Elevated LFTs Code(s): R94.5 - ABNORMAL RESULTS OF LIVER FUNCTION STUDIES Status: Acute (2) Large B-cell lymphoma Code(s): C85.10 - UNSPECIFIED B-CELL LYMPHOMA, UNSPECIFIED SITE Status: Acute - Plan is on 2nd day of 2nd cycle chemotherapy renal function is normal elevated lft's stable hemostable will f/u to ambulate as tolerated
[2019-04-02] MEDS: Ondansetron PF 4 MG/2 ML Vial IVP SCH ×2 (14:00→19:15)
[2019-04-02] MEDS ORDERED: Fosaprepitant Dimeglumine 150 MG in 0.9 % Sodium Chloride 150 ML IVPB SCH ×2 (15:00→19:30)
[2019-04-02] MEDS: predniSONE 50 MG TAB PO SCH (19:13)
[2019-04-02] MEDS: predniSONE 20 MG TAB PO SCH (19:13)
[2019-04-02] MEDS: Sulfameth/Trimethoprim DS 800-160mg TAB PO SCH (19:17)
[2019-04-03 04:23] LABS: #Lymphocytes 0.4 thou/uL (1.20-3.40); #Monocytes 0.2 thou/uL (0.11-0.59); #Neutrophils 12.6 thou/uL (1.40-6.50); %Basophils 0.1 % (0.0-1.0); %Eosinophils 0.1 % (0.0-10.0); %Lymphocytes 2.8 % (21.0-51.0); %Monocytes 1.5 % (0.0-10.0); %Neutrophils 95.6 % (42.0-75.0); Hemoglobin 13.6 g/dL (14.0-18.0); Mean Corpuscular HGB CONC 35.5 g/dL (32.0-36.0); Mean Corpuscular Volume 84.6 fL (78.0-98.0); Mean Platelet Volume 8.3 fL (7.4-10.4); Platelet Count 148 thou/uL (130-400); RBC Distribution Width 12.5 % (11.5-14.5); Red Blood Cell (RBC) Count 4.54 mill/uL (4.70-6.10); White Blood Cell (WBC) Count 13.2 thou/uL (4.8-10.8)
[2019-04-03 04:44] LABS: ALT (SGPT) 60 U/L (8-55); AST (SGOT) 20 U/L (5-34); Alkaline Phosphatase 88 U/L (40-110); Anion Gap 11 mmol/L (10-20); BUN (Urea Nitrogen) 14 mg/dL (8.9-20.6); Bilirubin, Total 0.7 mg/dL (0.2-1.2); Calc. Creatinine Clearance 123 mL/min (70-130); Calcium 9.3 mg/dL (7.8-10.44); Carbon Dioxide 28 mmol/L (22-29); Chloride 104 mmol/L (98-107); Estimated GFR-MDRD Greater than 90; Globulin 2.1 g/dL (2.4-3.5); Glucose 121 mg/dL (70-105); Potassium 4.4 mmol/L (3.5-5.1); Protein, Total 6.1 g/dL (6.0-8.3); Sodium 139 mmol/L (136-145); Uric Acid 4.7 mg/dL (3.5-7.2)
[2019-04-03] MEDS: Ondansetron 2MG/ML MDV 10 MG in Sodium Chloride 0.9% 50 ML IVP SCH ×2 (06:03→10:54)
[2019-04-03] MEDS: ETOPOSIDE IVPB SCH (06:23)
[2019-04-03] MEDS: SODIUM CHLORIDE 0.9% IVPB SCH ×2 (06:23→08:16)
[2019-04-03] MEDS: DOXORUBICIN IVPB SCH (08:16)
[2019-04-03] MEDS: Famotidine 20 MG TAB PO SCH (08:16)
[2019-04-03] MEDS: Enoxaparin Sodium 40 MG/0.4 ML SYRINGE SC SCH (08:16)
[2019-04-03] MEDS ORDERED: Prochlorperazine Maleate 5 MG TAB PO PRN (08:37)
--- NOTE | 2019-04-03 09:52 | PDOC.MOPN ---
Interval History: Pt feeling ok today. He c/o nausea, no vomiting. Denies SOB, fevers, or pain. Walking daily. - Vital Signs Vital Signs: Vital Signs (12 hours) Temp Pulse Resp BP Pulse Ox 04/03/19 08:00 97.7 F 78 18 108/59 L 97 Weight Admit Weight 141 lb 4.003 oz Weight 141 lb - Physical Exam General: Alert, Oriented x3, Cooperative HEENT: EOMI Lungs: Normal air movement Cardiovascular: Regular rate Neurological: Cranial nerves 3-12 NL Psych/Mental Status: Mental status NL - Labs Result Diagrams: 04/03/19 04:09 04/03/19 04:09 Lab results: Laboratory Results - last 24 hr 04/03/19 04:09: WBC 13.2 H, RBC 4.54 L, Hgb 13.6 L, Hct 38.4 L, MCV 84.6, MCH 30.0, MCHC 35.5, RDW 12.5, Plt Count 148, MPV 8.3, Neutrophils % 95.6 H, Lymphocytes % 2.8 L, Monocytes % 1.5, Eosinophils % 0.1, Basophils % 0.1, Neutrophils # 12.6 H, Lymphocytes # 0.4 L, Monocytes # 0.2, Eosinophils # 0.0, Basophils # 0.0 04/03/19 04:09: Lactate Dehydrogenase 177 04/03/19 04:09: Sodium 139, Potassium 4.4, Chloride 104, Carbon Dioxide 28, Anion Gap 11, BUN 14, Creatinine 0.86, Estimated GFR (MDRD) Greater than 90, Glucose 121 H, Uric Acid 4.7, Calcium 9.3, Phosphorus 4.0, Total Bilirubin 0.7, AST 20, ALT 60 H, Alkaline Phosphatase 88, Serum Total Protein 6.1, Albumin 4.0 , Globulin 2.1 L, Albumin/Globulin Ratio 1.9 A/P - Problem (1) Large B-cell lymphoma Current Visit: No Code(s): C85.10 - UNSPECIFIED B-CELL LYMPHOMA, UNSPECIFIED SITE Status: Acute - Plan Plan: Cont da-EPOCH-R: C2D4 Add Compazine for nausea prn, cont Zofran. He will receive Palonosetron tomorrow with Cytoxan Give Fulphila on Sunday and then discharge home
[2019-04-03] MEDS ORDERED: Mag-Al Plus 1200 MG/1200 MG/120 MG/30 ML UDCUP PO PRN (12:15)
[2019-04-03] MEDS ORDERED: Promethazine HCl 25 MG/ML VIAL IM/IV PRN (12:15)
--- NOTE | 2019-04-03 12:18 | PDOC.HOSPP ---
- Subjective Encounter Date: 04/03/19 Encounter Time: 12:00 Subjective: c/o nausea, unable to eat anything from last night getting chemo now - Objective Vital Signs & Weight: Vital Signs (12 hours) Temp Pulse Resp BP Pulse Ox 04/03/19 08:00 97.7 F 78 18 108/59 L 97 Weight Admit Weight 141 lb 4.003 oz Weight 141 lb I&O: 04/02/19 04/03/19 04/04/19 06:59 06:59 06:59 Intake Total 1000 1000 Balance 1000 1000 Result Diagrams: 04/03/19 04:09 04/03/19 04:09 Hospitalist ROS - Medication Medications: Active Medications Generic Name Dose Route Start Last Admin Trade Name Freq PRN Reason Stop Dose Admin Enoxaparin Sodium 40 mg 04/01/19 09:00 04/03/19 08:16 Lovenox SC Not Given 0900 VIKTORIA Famotidine 20 mg 03/31/19 21:00 04/03/19 08:16 Pepcid PO 20 mg BID VIKTORIA Administration Ondansetron HCl 10 mg/ Sodium 55 mls @ 330 mls/hr 04/01/19 09:00 04/03/19 10: 54 Chloride IVP Not Given DAILY VIKTORIA Doxorubicin HCl 18 mg/ Sodium 259 mls @ 0 mls/hr 03/31/19 14:30 04/03/19 08: 16 Chloride IVPB 259 mls WILLCALL VIKTORIA Administration As Directed Etoposide 92 mg/ Sodium 504.6 mls @ 504.6 mls/hr 04/01/19 14:30 04/03/19 06: 23 Chloride IVPB 504.6 mls WILLCALL VIKTORIA Administration Ondansetron HCl 10 mg 03/31/19 14:00 04/02/19 19:15 Zofran IVP 04/03/19 15:00 Not Given 1400 VIKTORIA Prednisone 10 mg 04/01/19 17:00 04/02/19 19:13 Prednisone PO 04/04/19 17:01 10 mg QPM-WM VIKTORIA Administration Prednisone 100 mg 04/01/19 17:00 04/02/19 19:13 Prednisone PO 04/04/19 17:01 100 mg QPM-WM VIKTORIA Administration Prochlorperazine Maleate 5 mg 04/03/19 08:37 04/03/19 08:54 Compazine PO 5 mg Q6H PRN Administration Nausea/Vomiting Trimethoprim/Sulfamethoxazole 1 tab 03/31/19 18:30 04/02/19 19:17 Bactrim Ds PO 1 tab [id number] VIKTORIA Administration - Exam General Appearance: awake alert Eye: anicteric sclera ENT: no oropharyngeal lesions, moist mucosa Neck: supple, no JVD Heart: RRR, no murmur Respiratory: no wheezes, no rales Gastrointestinal: soft, non-tender, non-distended, normal bowel sounds Extremities: no cyanosis, no edema Neurological: cranial nerve grossly intact, no focal deficits Psychiatric: normal affect, A&O x 3 Hosp A/P (1) Large B-cell lymphoma Code(s): C85.10 - UNSPECIFIED B-CELL LYMPHOMA, UNSPECIFIED SITE Status: Acute (2) Elevated LFTs Code(s): R94.5 - ABNORMAL RESULTS OF LIVER FUNCTION STUDIES Status: Acute - Plan is on 3nd day of 2nd cycle chemotherapy renal function is normal elevated lft's stable hemostable will f/u to ambulate as tolerated phenergan prn in addition to zofran, maalox prn, protonix bid
[2019-04-03] MEDS ORDERED: Promethazine HCl 25 MG in Sodium Chloride 0.9% 50 ML IVPB SCH (12:30)
[2019-04-03 16:04] VITALS: BMI 18.6
[2019-04-03] MEDS: Ondansetron PF 4 MG/2 ML Vial IVP SCH (18:28)
[2019-04-03] MEDS: predniSONE 20 MG TAB PO SCH (18:34)
[2019-04-03] MEDS: predniSONE 50 MG TAB PO SCH (19:55)
[2019-04-04 05:22] LABS: #Lymphocytes 0.4 thou/uL (1.20-3.40); #Monocytes 0.1 thou/uL (0.11-0.59); #Neutrophils 7.2 thou/uL (1.40-6.50); %Eosinophils 0.1 % (0.0-10.0); %Lymphocytes 4.9 % (21.0-51.0); %Monocytes 1.4 % (0.0-10.0); %Neutrophils 93.6 % (42.0-75.0); Hemoglobin 13.6 g/dL (14.0-18.0); Mean Corpuscular HGB CONC 35.1 g/dL (32.0-36.0); Mean Corpuscular Hemoglobin 29.5 pg (27.0-31.0); Mean Corpuscular Volume 84.1 fL (78.0-98.0); Mean Platelet Volume 8.2 fL (7.4-10.4); Platelet Count 164 thou/uL (130-400); RBC Distribution Width 12.4 % (11.5-14.5); Red Blood Cell (RBC) Count 4.61 mill/uL (4.70-6.10); White Blood Cell (WBC) Count 7.7 thou/uL (4.8-10.8)
[2019-04-04 05:48] LABS: ALT (SGPT) 49 U/L (8-55); AST (SGOT) 16 U/L (5-34); Alkaline Phosphatase 80 U/L (40-110); Anion Gap 10 mmol/L (10-20); BUN (Urea Nitrogen) 16 mg/dL (8.9-20.6); Bilirubin, Total 0.8 mg/dL (0.2-1.2); Calc. Creatinine Clearance 132 mL/min (70-130); Calcium 9.3 mg/dL (7.8-10.44); Carbon Dioxide 28 mmol/L (22-29); Chloride 103 mmol/L (98-107); Estimated GFR-MDRD Greater than 90; Globulin 2.1 g/dL (2.4-3.5); Glucose 117 mg/dL (70-105); Phosphorus 3.7 mg/dL (2.3-4.7); Potassium 4.3 mmol/L (3.5-5.1); Protein, Total 6.1 g/dL (6.0-8.3); Sodium 137 mmol/L (136-145); Uric Acid 4.8 mg/dL (3.5-7.2)
[2019-04-04] MEDS: Enoxaparin Sodium 40 MG/0.4 ML SYRINGE SC SCH (09:39)
[2019-04-04] MEDS: Ondansetron 2MG/ML MDV 10 MG in Sodium Chloride 0.9% 50 ML IVP SCH (09:40)
[2019-04-04] MEDS: ETOPOSIDE IVPB SCH (11:14)
[2019-04-04] MEDS: SODIUM CHLORIDE 0.9% IVPB SCH ×2 (11:14→12:41)
[2019-04-04] MEDS: DOXORUBICIN IVPB SCH (12:41)
--- NOTE | 2019-04-04 14:26 | PDOC.MOPN ---
Interval History: has frequent nausea. - Vital Signs Vital Signs: Vital Signs (12 hours) Temp Pulse Resp BP BP Pulse Ox 04/04/19 12:00 98.7 F 87 16 116/56 L 96 04/04/19 07:40 98.1 F 69 16 115/55 L 98 04/04/19 04:45 97.9 F 74 16 115/61 96 Weight Admit Weight 141 lb 4.003 oz Weight 141 lb - Physical Exam General: Alert, Oriented x3, No acute distress HEENT: Atraumatic, PERRLA, EOMI, Mucous membr. moist/pink Lungs: Clear to auscultation, Normal air movement Cardiovascular: Regular rate, Normal S1, Normal S2, No murmurs, Gallops, Rubs Abdomen: Normal bowel sounds, Soft, No tenderness, No hepatospenomegaly, No masses Extremities: No clubbing, No cyanosis, No edema, Normal pulses, No tenderness/ swelling Skin: No rashes, No breakdown, No significant lesion Neurological: Normal gait, Normal speech, Strength at 5/5 X4 ext, Normal tone, Sensation intact, Cranial nerves 3-12 NL, Reflexes 2+ Psych/Mental Status: Mental status NL, Mood NL - Labs Result Diagrams: 04/04/19 04:58 04/04/19 04:58 Lab results: Laboratory Results - last 24 hr 04/04/19 04:58: WBC 7.7, RBC 4.61 L, Hgb 13.6 L, Hct 38.8 L, MCV 84.1, MCH 29.5 , MCHC 35.1, RDW 12.4, Plt Count 164, MPV 8.2, Neutrophils % 93.6 H, Lymphocytes % 4.9 L, Monocytes % 1.4, Eosinophils % 0.1, Basophils % 0.0, Neutrophils # 7.2 H, Lymphocytes # 0.4 L, Monocytes # 0.1 L, Eosinophils # 0.0, Basophils # 0.0 04/04/19 04:58: Lactate Dehydrogenase 176 04/04/19 04:58: Sodium 137, Potassium 4.3, Chloride 103, Carbon Dioxide 28, Anion Gap 10, BUN 16, Creatinine 0.80, Estimated GFR (MDRD) Greater than 90, Glucose 117 H, Uric Acid 4.8, Calcium 9.3, Phosphorus 3.7, Total Bilirubin 0.8, AST 16, ALT 49, Alkaline Phosphatase 80, Serum Total Protein 6.1, Albumin 4.0, Globulin 2.1 L, Albumin/Globulin Ratio 1.9 Status: lab reviewed by me A/P - Problem (1) Large B-cell lymphoma Current Visit: No Code(s): C85.10 - UNSPECIFIED B-CELL LYMPHOMA, UNSPECIFIED SITE Status: Acute - Plan Plan: Cont da-EPOCH-R: C2D5 continue Compazine for nausea prn, cont Zofran. He will receive Palonosetron tomorrow with Cytoxan [facility] Sunday Am Give Fulphila and then discharge home
--- NOTE | 2019-04-04 15:03 | PDOC.HOSPP ---
- Subjective Encounter Date: 04/04/19 Encounter Time: 12:00 Subjective: nausea is better, ate some breakfast - Objective Vital Signs & Weight: Vital Signs (12 hours) Temp Pulse Resp BP BP Pulse Ox 04/04/19 12:00 98.7 F 87 16 116/56 L 96 04/04/19 07:40 98.1 F 69 16 115/55 L 98 04/04/19 04:45 97.9 F 74 16 115/61 96 Weight Admit Weight 141 lb 4.003 oz Weight 141 lb I&O: 04/03/19 04/04/19 04/05/19 06:59 06:59 06:59 Intake Total 1000 1150 Balance 1000 1150 Result Diagrams: 04/04/19 04:58 04/04/19 04:58 Hospitalist ROS - Medication Medications: Active Medications Generic Name Dose Route Start Last Admin Trade Name Freq PRN Reason Stop Dose Admin Enoxaparin Sodium 40 mg 04/01/19 09:00 04/04/19 09:39 Lovenox SC Not Given 09 VIKTORIA Ondansetron HCl 10 mg/ Sodium 55 mls @ 330 mls/hr 04/01/19 09:00 04/04/19 09: 40 Chloride IVP 55 mls DAILY VIKTORIA Administration Doxorubicin HCl 18 mg/ Sodium 259 mls @ 0 mls/hr 03/31/19 14:30 04/04/19 12: 41 Chloride IVPB 259 mls WILLCALL VIKTORIA Administration As Directed Etoposide 92 mg/ Sodium 504.6 mls @ 504.6 mls/hr 04/01/19 14:30 04/04/19 11: 14 Chloride IVPB 504.6 mls WILLCALL VIKTORIA Administration Pantoprazole Sodium 40 mg 04/03/19 21:00 04/04/19 09:39 Protonix PO 40 mg BID VIKTORIA Administration Prednisone 10 mg 04/01/19 17:00 04/03/19 18:34 Prednisone PO 04/04/19 17:01 10 mg QPM-WM VIKTORIA Administration Prednisone 100 mg 04/01/19 17:00 04/03/19 19:55 Prednisone PO 04/04/19 17:01 100 mg QPM-WM VIKTORIA Administration Prochlorperazine Maleate 5 mg 04/03/19 08:37 04/03/19 08:54 Compazine PO 5 mg Q6H PRN Administration Nausea/Vomiting Trimethoprim/Sulfamethoxazole 1 tab 03/31/19 18:30 04/02/19 19:17 Bactrim Ds PO 1 tab [id number] [facility] Administration - Exam General Appearance: awake alert Eye: PERRL, anicteric sclera ENT: no oropharyngeal lesions, moist mucosa Neck: supple, no JVD Heart: RRR, no murmur Respiratory: no wheezes, no rales Gastrointestinal: soft, non-tender, non-distended, normal bowel sounds Extremities: no cyanosis, no edema Neurological: cranial nerve grossly intact, no focal deficits Psychiatric: normal affect, A&O x 3 Hosp A/P (1) Large B-cell lymphoma Code(s): C85.10 - UNSPECIFIED B-CELL LYMPHOMA, UNSPECIFIED SITE Status: Acute (2) Elevated LFTs Code(s): R94.5 - ABNORMAL RESULTS OF LIVER FUNCTION STUDIES Status: Acute - Plan is on day 4 of 2nd cycle chemotherapy renal function is normal elevated lft's stable hemostable to ambulate as tolerated zofran, maalox prn, protonix bid for mediport on sunday, then dc home per onc/surgery adv
[2019-04-04] MEDS: Sulfameth/Trimethoprim DS 800-160mg TAB PO SCH (18:24)
[2019-04-04] MEDS: predniSONE 20 MG TAB PO SCH (18:24)
[2019-04-04] MEDS: predniSONE 50 MG TAB PO SCH (18:24)
[2019-04-05] MEDS ORDERED: Palonosetron HCl 0.25 MG in Sodium Chloride 0.9% 50 ML IVPB SCH (08:00)
[2019-04-05] MEDS ORDERED: predniSONE 50 MG TAB PO SCH ×2 (08:00→17:00)
[2019-04-05] MEDS ORDERED: CYCLOPHOSPHAMIDE IVPB SCH (08:00)
[2019-04-05] MEDS ORDERED: SODIUM CHLORIDE 0.9% IVPB SCH (08:00)
[2019-04-05] MEDS ORDERED: predniSONE 5 MG TAB PO SCH (08:00)
[2019-04-05] MEDS: Enoxaparin Sodium 40 MG/0.4 ML SYRINGE SC SCH (09:15)
--- NOTE | 2019-04-05 09:46 | PDOC.EVN ---
Event Note - Event Note Event Note: Patient has had significant clinical improvement and can lay flat without issue now. Plan mediport placement 04/06. Risks/benefits discussed. Hold lovenox tomorrow.
[2019-04-05 11:45] LABS: #Lymphocytes 0.5 thou/uL (1.20-3.40); #Monocytes 0.2 thou/uL (0.11-0.59); %Basophils 0.1 % (0.0-1.0); %Eosinophils 0.1 % (0.0-10.0); %Monocytes 2.8 % (0.0-10.0); Hemoglobin 13.2 g/dL (14.0-18.0); Mean Corpuscular HGB CONC 35.6 g/dL (32.0-36.0); Mean Corpuscular Hemoglobin 29.8 pg (27.0-31.0); Mean Corpuscular Volume 83.7 fL (78.0-98.0); Mean Platelet Volume 8.3 fL (7.4-10.4); Platelet Count 204 thou/uL (130-400); RBC Distribution Width 12.3 % (11.5-14.5); Red Blood Cell (RBC) Count 4.44 mill/uL (4.70-6.10); White Blood Cell (WBC) Count 7.7 thou/uL (4.8-10.8)
[2019-04-05 12:05] LABS: ALT (SGPT) 38 U/L (8-55); AST (SGOT) 12 U/L (5-34); Albumin 3.9 g/dL (3.5-5.0); Alkaline Phosphatase 73 U/L (40-110); Anion Gap 14 mmol/L (10-20); BUN (Urea Nitrogen) 16 mg/dL (8.9-20.6); Bilirubin, Total 1.3 mg/dL (0.2-1.2); Calc. Creatinine Clearance 124 mL/min (70-130); Calcium 9.3 mg/dL (7.8-10.44); Carbon Dioxide 26 mmol/L (22-29); Chloride 101 mmol/L (98-107); Estimated GFR-MDRD Greater than 90; Globulin 2.2 g/dL (2.4-3.5); Glucose 146 mg/dL (70-105); Phosphorus 3.2 mg/dL (2.3-4.7); Potassium 3.8 mmol/L (3.5-5.1); Protein, Total 6.1 g/dL (6.0-8.3); Sodium 137 mmol/L (136-145); Uric Acid 4.2 mg/dL (3.5-7.2)
--- NOTE | 2019-04-05 15:44 | PRG ---
DATE OF SERVICE: 04/05/2019 SUBJECTIVE: Feeling well today, has no complaints, eating well, breathing well. OBJECTIVE: VITAL SIGNS: Temperature is 98.3, pulse 94, respirations 16, O2 saturation 98% on room air, and BP 138/68. GENERAL APPEARANCE: Age-appropriate male, in no distress. HEART: Regular rate and rhythm. LUNGS: Clear to auscultation bilaterally. ABDOMEN: Soft, nontender, and nondistended. EXTREMITIES: No cyanosis, clubbing, or edema. LABORATORY DATA: White count 7.7 and hemoglobin 13.2. Chemistries normal with the exception of glucose 146 and total bilirubin 1.3. IMPRESSION AND PLAN: Large B-cell lymphoma with bulky thoracic tumor burden. Second cycle of EPOCH-R therapy, on allopurinol for potential tumor lysis syndrome, tolerating extraordinarily well at the moment. Plan is to finish the treatment today. Have a MediPort placed tomorrow. Once that has occurred, then he will get Fulphila and then be able to discharge to home subsequent. Job ID: [id number] [facility]
[2019-04-05] MEDS: Ondansetron 2MG/ML MDV 10 MG in Sodium Chloride 0.9% 50 ML IVP SCH (16:18)
[2019-04-05] MEDS: Ondansetron PF 4 MG/2 ML Vial IVP SCH (19:15)
[2019-04-06] MEDS ORDERED: Lidocaine 1% w/Epinephrine 1:100K 20 ML VIAL ONE (07:40)
[2019-04-06] MEDS ORDERED: Bupivacaine 0.25% HCL 30 ML VIAL ONE (07:40)
[2019-04-06] MEDS ORDERED: Midazolam HCl 2 mg/2 ml Vial ONE (07:44)
[2019-04-06] MEDS ORDERED: Fentanyl 100 MCG/2 ML VIAL ONE (07:44)
[2019-04-06] MEDS ORDERED: Propofol 500 MG/50 ML VIAL ONE (07:44)
[2019-04-06] MEDS ORDERED: Ketamine 50 MG/ML (10ML VIAL) ONE (07:44)
[2019-04-06] MEDS ORDERED: Promethazine HCl 25 MG/ML VIAL SLOW IVP PRN (08:47)
[2019-04-06] MEDS ORDERED: PACU-Morphine 4MG/ML VIAL SLOW IVP PRN (08:47)
[2019-04-06] MEDS ORDERED: Promethazine HCl 25 MG/ML VIAL IM PRN (08:47)
[2019-04-06] MEDS ORDERED: HYDROmorphone 2 MG/ML VIAL SLOW IVP PRN (08:47)
[2019-04-06] MEDS ORDERED: Ondansetron HCl/PF 4 MG/2 ML Vial IVP PRN (08:47)
--- NOTE | 2019-04-06 09:29 | RAD ---
EXAM: Single view of the chest HISTORY: Mediport placement COMPARISON: 03/03/2019 FINDINGS: Single view of the chest shows a normal sized cardiomediastinal silhouette. A right IJ Med iport is seen with its tip in the superior vena cava. No pneumothorax is seen. A PICC line is seen with its tip in the superior vena cava. There is no evidence of consolidation, mass, or pleural effus ion. The bones are unremarkable. IMPRESSION: Status post Mediport placement without evidence of complication.
[2019-04-06 11:40] VITALS: BP 130/65; TEMP 97.7
[2019-04-06] MEDS: Ondansetron 2MG/ML MDV 10 MG in Sodium Chloride 0.9% 50 ML IVP SCH (11:59)
--- NOTE | 2019-04-06 15:57 | OP ---
DATE OF PROCEDURE: 04/06/2019 PREOPERATIVE DIAGNOSIS: Lymphoma. POSTOPERATIVE DIAGNOSIS: Lymphoma. PROCEDURE PERFORMED: Tunneled central line subcutaneous port (MediPort CT injectable). ANESTHESIA: TIVA, local. ESTIMATED BLOOD LOSS: Minimal. COMPLICATIONS: None. SPECIMEN: None. FINDINGS: Tip of the catheter was at the atriocaval junction. DESCRIPTION OF PROCEDURE: The patient was taken to the operating room and laid supine on the operating room table. After general anesthetic was obtained and after sedation was obtained, bilateral neck and chest were shaved, prepped, and draped in a sterile fashion. Local anesthetic was infiltrated over the right internal jugular vein and down onto the chest. A 22-gauge finder needle followed by a Seldinger needle was used to access the right internal jugular vein. A wire was passed into the superior vena cava under fluoro guidance. A small nena was made at the wire entrance site. A separate 4-cm incision was made in the right upper chest. Subcutaneous pocket was made below the lower incision, tubing for the MediPort tunneled from the inferior to superior incision, Introducer sheath was placed over the wire into the superior vena cava under fluoro guidance. The dilator and wire were removed. The end of the catheter sewed into the sheath. The sheath was peeled away. The tip of the catheter was at the atriocaval junction. MediPort tubing cut to fit the MediPort at the lower incision, connected to the MediPort, which was sewn to the chest wall in the subcutaneous pocket using Prolene. The MediPort was flushed and ruben blood without difficulties, it was flushed with a heparin flush. The wounds were all irrigated and closed using 4-0 Monocryl and Dermabond. The patient was sent to Recovery in stable condition. All instrument counts, needle counts, and lap counts were correct. Job ID: [id number]
[2019-04-06] MEDS ORDERED: PEGFILGRASTIM-JMDB 6 MG/0.6 ML SYRINGE SQ SCH (16:00)
--- NOTE | 2019-04-06 20:20 | DIS ---
DATE OF ADMISSION: 03/31/2019 DATE OF DISCHARGE: 04/06/2019 DISCHARGE DIAGNOSES: 1. Large B-cell lymphoma. 2. Nausea. 3. Elevated liver enzymes. HISTORY OF PRESENT ILLNESS: This patient is a 19-year-old male, diagnosed with large B-cell lymphoma who was admitted to the hospital for cycle 2 of EPOCH-R chemotherapy. HOSPITAL COURSE: The patient was admitted to the Oncology unit, where he was started on EPOCH-R chemotherapy with p.r.n. antiemetics and allopurinol. He tolerated treatment well. He did have some mild intermittent nausea, but with the second cycle of therapy, the patient was more able to lie flat; therefore, Surgery was consulted and Dr. Carmen placed a MediPort on the day of discharge once his chemotherapy had completed. With that, his PICC line was removed, he was given a dose of Fulphila and was felt to be stable for discharge to home. PHYSICAL EXAMINATION: VITAL SIGNS: On the day of discharge, temperature was 97.7, pulse 86, respirations 14, O2 saturation 97% on room air, BP 130/65. GENERAL: He was awake and alert. HEART: Regular rate and rhythm. LUNGS: Clear. ABDOMEN: Benign. SKIN: His skin incisions at the right neck and right subclavian area with MediPort appeared to be in good condition. DISPOSITION: The patient is discharged to home. DISCHARGE MEDICATIONS: He will be on: 1. Allopurinol 1 p.o. b.i.d. 200 mg. 2. Omeprazole 20 mg daily. 3. Ondansetron 8 mg q.6 hours p.r.n. nausea, vomiting. 4. Bactrim DS one p.o. Sunday, Sunday, and Sunday. DIET: He is to have regular diet. ACTIVITY: As tolerated. FOLLOWUP: He will follow up with Dr. Haresh Rizo, and he was made aware that he should notify the physician should he have any signs of infection around the MediPort site. The patient can follow up at the hospital anytime if he needs to do so. The patient reported that the anesthesiologist prior to the MediPort insertion palpated the right neck base area and thought he felt an enlarged lymph node. This could not fully be assessed subsequent because of the incision in that area had some edema and tenderness; therefore, he was encouraged to continue to have this evaluated in followup. TIME SPENT: Total time in discharge activities was 31 minutes. Job ID: [id number] [facility]
--- NOTE | 2019-04-07 08:05 | PDOC.EVN ---
Event Note - Event Note Event Note: Patient reported that anesthesia palpated a LN in the right anterior chain near the clavicle that was thought to be enlarged. When I saw him again after the Port was placed, there was a skin incision directly over that area so it could not be palpated well. I have discussed this with Dr. Rizo so that he may be able to follow up on that.
[2019-04-07] MEDS ORDERED: PEGFILGRASTIM-JMDB 6 MG/0.6 ML SYRINGE SQ SCH (09:00)
== END 2019-04-06 16:53 | disposition home or self-care (01) | DRG 847 ==
LOC: ONC 09:46
PROVIDERS: ADMIT Internal Medicine Hematology & Oncology; ATTEND Internal Medicine Hematology & Oncology
PROC: 3E04305 Introduction of Other Antineoplastic into Central Vein, Percutaneous Approach (ICD-10-PCS; principal; 2019-03-31)
PROC: 0JH63XZ Insertion of Tunneled Vascular Access Device into Chest Subcutaneous Tissue and Fascia, Percutaneous Approach (ICD-10-PCS; 2019-04-06)
PROC: 02HV33Z Insertion of Infusion Device into Superior Vena Cava, Percutaneous Approach (ICD-10-PCS; 2019-04-06)
PROC: B518ZZA Fluoroscopy of Superior Vena Cava, Guidance (ICD-10-PCS; 2019-04-06)
DX: Z51.11 Encounter for antineoplastic chemotherapy (principal); C83.32 Diffuse large B-cell lymphoma, intrathoracic lymph nodes; R94.5 Abnormal results of liver function studies; R11.0 Nausea
CPT/HCPCS: 36415; 71045; 71046; 80053; 82248; 83615; 84100; 84550; 85025; C1788; J0690; J1200; J1453; J1642; J2250; J2405; J2469; J2550; J2704; J3010; J3490; J7050; J7512; J9000; J9070; J9181; J9312; Q0164; Q5108; S0020; S0028